=== PATIENT | female | born 1960 | race Caucasian/White ===

== ENCOUNTER → 2016-08-02 | Outpatient (CLI) | payer OTHER | LOC: RAD 15:54 | PROVIDERS: ATTEND Podiatrist Foot & Ankle Surgery | DX: Q72.819 Congenital shortening of unspecified lower limb (principal) | CPT/HCPCS: 77073 ==

== ENCOUNTER → 2016-10-19 | Outpatient (CLI) | payer OTHER ==
--- NOTE | 2016-10-19 13:39 | RADIOLOGY REPORT (SQ) ---
EXAM DESCRIPTION: MRI RT LOWER JOINT WITHOUT COMPLETED DATE/TIME: 10/19/2016 10:47 am REASON FOR STUDY: PAIN IN RIGHT KNEE M25.561 PAIN IN RIGHT KNEE COMPARISON: None. TECHNIQUE: Rightknee images acquired and stored on PACS. Multiplanar images include fat sensitive s equences as T1, water sensitive sequences as FST2 or STIR, cartilage sensitive sequences as FSPD, and gradient echo sequences. LIMITATIONS: None. FINDINGS: JOINT AND BURSAE: Large joint effusion. No discrete loose bodies are appreciated. BONE CORTEX AND MARROW: No alteration of signal to suggest marrow replacement. No worrisome bone lesi ons. No occult fracture. ACL: Intact. PCL: Intact. MCL: Intact. LCL: Intact. MEDIAL MENISCUS: Suspicious for subtle root tear, best demonstrated on coronal sequences. Slightly e xtruded appearance of the meniscus. Presumed degenerative signal otherwise. LATERAL MENISCUS: Heterogeneous. Irregular signal particularly in the body of the meniscus extending to the inferior articular surface and free margin, largely horizontal. MEDIAL COMPARTMENT: Suspicious for irregular chondral loss in the weight-bearing femoral condyle, bes t demonstrated on the coronal T2 fat saturated sequence. This may measure up to 6 mm transverse dime nsion. Minimal underlying subchondral edema close to this area. LATERAL COMPARTMENT: Cartilage preserved. No bone bruises or reactive marrow edema. No osteophytes. PATELLA: Normal location. Full-thickness to near full thickness chondral loss near the mid patellar apex. No underlying subchondral cysts or edema. EXTENSOR MECHANISM: Intact. Quadriceps and patella tendons normal. SOFT TISSUES: Large Cisneros's cyst which looks partially ruptured. Appropriate vascular flow voids. OTHER: No other significant finding. IMPRESSION: 1. Medial and lateral meniscus tears are suggested, as above. 2. Focal chondral lesion in the medial femoral condyle. 2. Chondromalacia patella. 3. Large joint effusion and partially ru ptured sizable popliteal cyst. TECHNICAL DOCUMENTATION: JOB ID: [id number] [employer]- All Rights Reserved
== END ==
LOC: RAD 09:38
PROVIDERS: ATTEND Physician Assistant
DX: M25.561 Pain in right knee (principal); M22.41 Chondromalacia patellae, right knee; M25.461 Effusion, right knee

== ENCOUNTER → 2016-11-30 | Outpatient (CLI) | payer OTHER ==
--- NOTE | 2016-12-01 10:53 | RADIOLOGY REPORT (SQ) ---
EXAM DESCRIPTION: MRI LT LOWER JOINT WITHOUT COMPLETED DATE/TIME: 11/30/2016 11:29 am REASON FOR STUDY: LEFT KNEE PAIN M25.562 PAIN IN LEFT KNEE COMPARISON: None. TECHNIQUE: Leftknee images acquired and stored on PACS. Multiplanar images include fat sensitive se quences as T1, water sensitive sequences as FST2 or STIR, cartilage sensitive sequences as FSPD, and gradient echo sequences. LIMITATIONS: None. FINDINGS: JOINT AND BURSAE: Sizable joint effusion. No discrete loose bodies. BONE CORTEX AND MARROW: Generally normal. Mild focal signal likely represents a 1 cm chondroid lesio n in the distal femur medially. ACL: Intact. PCL: Intact. MCL: Intact. LCL: Intact. MEDIAL MENISCUS: Slightly expanded appearance of the posterior horn with mildly diffuse non linear hy perintense T2 signal throughout. Degenerative appearance without discrete tear. LATERAL MENISCUS: No tears. No abnormal signal. MEDIAL COMPARTMENT: Thinning of hyaline cartilage in the weight-bearing surfaces but no suggestion of bulky osteophytes or subchondral cysts. LATERAL COMPARTMENT: Cartilage preserved. No bone bruises or reactive marrow edema. No osteophytes. PATELLA: Normal location. Irregular thinning of cartilage, fibrillation and near full thickness loss in the upper patella particularly near the apex. Minimal subchondral cysts with chondral thinning i n the central trochlea. EXTENSOR MECHANISM: Intact. Quadriceps and patella tendons normal. SOFT TISSUES: Adjacent muscles and subcutaneous tissues normal. Normal flow void in popliteal artery and vein. OTHER: No other significant finding. IMPRESSION: 1. Large joint effusion. 2. Chondral disease as described, medial compartment and pat ellofemoral. No discrete focal full-thickness areas of loss. 3. Allowing for degenerative signal i n the medial meniscus, no tear appreciated. 4. Probable enchondroma in the distal femur, no aggressi ve features. Radiographs may help to confirm this. TECHNICAL DOCUMENTATION: JOB ID: [id number] [employer] All Rights Reserved
== END ==
LOC: RAD 09:23
PROVIDERS: ATTEND Orthopaedic Surgery
DX: M25.562 Pain in left knee (principal)

== ENCOUNTER → 2016-12-11 | Outpatient (CLI) | payer OTHER ==
[2016-12-11 11:56] LABS: ABSOLUTE BASOPHILS # (AUTO) 0.1 10^3/uL (0.0-0.2); ABSOLUTE EOSINOPHILS # (AUTO) 0.2 10^3/uL (0.0-0.6); ABSOLUTE LYMPHOCYTES (AUTO) 2.3 10^3/uL (0.5-4.7); ABSOLUTE MONOCYTES (AUTO) 0.8 10^3/uL (0.1-1.4); ABSOLUTE NEUT (AUTO) 5.3 10^3/uL (1.7-8.2); BASOPHILS % (AUTO) 1.1 % (0-2); EOSINOPHILS % (AUTO) 2.9 % (0-6); HEMATOCRIT 35.4 % (36.0-47.0); HEMOGLOBIN 12.1 g/dL (12.0-15.5); HGB HCT DIFFERENCE 0.9; LYMPHOCYTES % (AUTO) 26.4 % (13-45); MEAN CORPUSCULAR HEMOGLOBIN 31.8 pg (27.0-33.4); MEAN CORPUSCULAR HGB CONC 34.3 g/dL (32.0-36.0); MEAN CORPUSCULAR VOLUME 93 fl (80-97); RED BLOOD COUNT 3.82 10^6/uL (3.72-5.28); RED CELL DISTRIBUTION WIDTH 14.9 % (11.5-14.0); SEGMENTED NEUTROPHILS % (AUTO) 60.6 % (42-78); WHITE BLOOD COUNT 8.8 10^3/uL (4.0-10.5)
[2016-12-11 12:24] LABS: ALANINE AMINOTRANSFERASE 45 U/L (9-52); ALBUMIN 4.5 g/dL (3.5-5.0); ALKALINE PHOSPHATASE 69 U/L (38-126); ANION GAP 11 (5-19); ASPARTATE AMINO TRANSFERASE 34 U/L (14-36); BILIRUBIN,DIRECT 0.3 mg/dL (0.0-0.4); BILIRUBIN,TOTAL 0.4 mg/dL (0.2-1.3); BLOOD UREA NITROGEN 14 mg/dL (7-20); CALCIUM 9.4 mg/dL (8.4-10.2); CARBON DIOXIDE 26 mmol/L (22-30); CHLORIDE 104 mmol/L (98-107); CREATININE RESULT 0.73 mg/dL (0.52-1.25); GLUCOSE 96 mg/dL (75-110); POTASSIUM 4.7 mmol/L (3.6-5.0); SODIUM 140.6 mmol/L (137-145); TOTAL PROTEIN 7.7 g/dL (6.3-8.2)
== END ==
LOC: OD 10:19
PROVIDERS: ATTEND Physician Assistant
DX: Z11.2 Encounter for screening for other bacterial diseases (principal); I10 Essential (primary) hypertension
CPT/HCPCS: 36415; 80053; 85025; 87070

== ENCOUNTER → 2017-02-10 | Outpatient (CLI) | payer OTHER ==
--- NOTE | 2017-02-10 17:11 | WOMENS IMAGING REPORT ---
EXAM DESCRIPTION: BILAT SCREENING MAMMO W/CAD COMPLETED DATE/TIME: 02/10/2017 3:43 pm REASON FOR STUDY: ROUTINE SCREENING; Z12.31 Z12.31 ENCNTR SCREEN MAMMOGRAM FOR MALIGNANT NEOPLASM O F DAVIN COMPARISON: 2011 to 2015 TECHNIQUE: Standard craniocaudal and mediolateral oblique views of each breast recorded using [employer] acquisition. LIMITATIONS: None. FINDINGS: No masses, calcifications or architectural distortion. No areas of suspicion. Read with the assistance of CAD. .[facility] - R2 Cenova Version 1.3 .[facility] - R2 Cenova Version 1.3 .[facility] - R2 Cenova Version 2.4 .[facility] [place] Cenova Version 2.4 .[facility] - R2 [employer] Version 9.2 IMPRESSION: NORMAL MAMMOGRAM. BIRADS 1. BREAST DENSITY: b. There are scattered areas of fibroglandular density. BIRAD: 1 NEGATIVE RECOMMENDATION: ROUTINE SCREENING COMMENT: The patient has been notified of the results by letter per SA requirements. Additional no tification policies are in place for contacting patient with suspicious or incomplete findings. Quality ID #225: The [employer] recommends an annual screening mammogram for women aged 40 years or over. This facility utilizes a reminder system to ensure that all patients receive reminder letters, and/or direct phone calls for appointments. This includes reminders for routine scr eening mammograms, diagnostic mammograms, or other Breast Imaging Interventions when appropriate. Th is patient will be placed in the appropriate reminder system. The [employer] (ACR) has developed recommendations for screening MRI of the breast s in certain patient populations, to be used in conjunction with mammography. Breast MRI surveillanc e may be appropriate for women with more than 20% lifetime risk of developing breast cancer as deter mined by genetic testing, significant family history of the disease, or history of mantle radiation f or Hodgkins Disease. ACR Practice Guidelines 2008. TECHNICAL DOCUMENTATION: FINDING NUMBER: (1) ASSESSMENT: (1) JOB ID: [id number] [employer]- All Rights Reserved
== END ==
LOC: WI 15:09
PROVIDERS: ATTEND Nurse Practitioner
DX: Z12.31 Encounter for screening mammogram for malignant neoplasm of breast (principal)
CPT/HCPCS: 77067; G0202

== ENCOUNTER → 2017-10-09 | Outpatient (CLI) | payer OTHER ==
--- NOTE | 2017-10-09 18:07 | RADIOLOGY REPORT (SQ) ---
EXAM DESCRIPTION: CERV SP 3 VIEW OR LESS COMPLETED DATE/TIME: 10/09/2017 5:51 pm REASON FOR STUDY: CERVICAL RADICULOPATHY (FLEX/EXT ONLY) COMPARISON: None. NUMBER OF VIEWS: Two view. TECHNIQUE: Lateral flexion-extension LIMITATIONS: None. FINDINGS: MINERALIZATION: Normal. ALIGNMENT: Anatomic. FLEXION/EXTENSION: No instability. VERTEBRAE: Vertebral bodies of normal height. DISCS: Mild degenerative disc disease at C4-5. LATERAL AND POSTERIOR ELEMENTS: Facets, lateral masses, and spinous processes without significant fin dings. HARDWARE: Anterior cervical fusion C5 through 7 with disc prostheses. SOFT TISSUES: No masses or calcifications. Lung apices clear. OTHER: No other significant finding. IMPRESSION: Surgical changes. Mild degenerative changes C4-5. NO INSTABILITY ON FLEXION/EXTENSION. TECHNICAL DOCUMENTATION: JOB ID: [id number] [employer]- All Rights Reserved Reading location - IP/workstation name: [email or web address]
== END ==
LOC: RAD 17:08
PROVIDERS: ATTEND Specialist
DX: M54.12 Radiculopathy, cervical region (principal)
CPT/HCPCS: 72040

== ENCOUNTER → 2018-01-08 | Outpatient (CLI) | payer OTHER ==
--- NOTE | 2018-01-08 17:45 | RADIOLOGY REPORT (SQ) ---
EXAM DESCRIPTION: CERV SP 3 VIEW OR LESS COMPLETED DATE/TIME: 01/08/2018 5:16 pm REASON FOR STUDY: M54.12 RADICULOPATHY, CERVICAL REGION M54.12 RADICULOPATHY, CERVICAL REGION COMPARISON: None. NUMBER OF VIEWS: Two views TECHNIQUE: Flexion and extension lateral radiographic images acquired of the cervical spine. LIMITATIONS: None. FINDINGS: Lateral views in flexion and extension show ACDF from C5-C7 with disc implants. There is no evidence of instability between flexion and extension. IMPRESSION: NO SIGNIFICANT RADIOGRAPHIC FINDING IN THE CERVICAL SPINE. TECHNICAL DOCUMENTATION: JOB ID: [id number] [employer]- All Rights Reserved Reading location - IP/workstation name: [email or web address]
== END ==
LOC: RAD 16:59
PROVIDERS: ATTEND Specialist
DX: M54.12 Radiculopathy, cervical region (principal)
CPT/HCPCS: 72040

== ENCOUNTER → 2018-02-11 | Outpatient (CLI) | payer OTHER ==
--- NOTE | 2018-02-11 16:41 | WOMENS IMAGING REPORT ---
EXAM DESCRIPTION: BILAT SCREENING MAMMO W/CAD COMPLETED DATE/TIME: 02/11/2018 3:53 pm REASON FOR STUDY: BLIATERAL SCREENING MAMMO /Z12.31 Z12.31 ENCNTR SCREEN MAMMOGRAM FOR MALIGNANT NE OPLASM OF DAVIN COMPARISON: 02/10/2017 and 02/06/2016 TECHNIQUE: Standard craniocaudal and mediolateral oblique views of each breast recorded using digita l acquisition. LIMITATIONS: None. FINDINGS: Findings present which are benign by mammographic criteria. No suspicious masses, calcifi cations or architectural distortion. Read with the assistance of CAD. .[facility] - R2 Cenova Version 1.3 .[facility] Imaging - R2 Cenova Version 1.3 .[facility] Imaging - R2 Cenova Version 2.[address] [place] - R2 Cenova Version 2.4 .[facility] - R2 [employer] Version 9.2 Benign mammographic findings may include one or more of the following: Smooth masses, popcorn/rim/co arse calcifications, asymmetries, post-procedure changes, and lesions with long-standing stability. IMPRESSION: BENIGN MAMMOGRAPHIC FINDINGS. BIRADS 2 BREAST DENSITY: b. There are scattered areas of fibroglandular density. BIRAD: 2 BENIGN FINDING(S) RECOMMENDATION: ROUTINE SCREENING COMMENT: The patient has been notified of the results by letter per SA requirements. Additional no tification policies are in place for contacting patient with suspicious or incomplete findings. Quality ID #225: The [employer] recommends an annual screening mammogram for women aged 40 years or over. This facility utilizes a reminder system to ensure that all patients receive reminder letters, and/or direct phone calls for appointments. This includes reminders for routine scr eening mammograms, diagnostic mammograms, or other Breast Imaging Interventions when appropriate. Th is patient will be placed in the appropriate reminder system. The [employer] (ACR) has developed recommendations for screening MRI of the breast s in certain patient populations, to be used in conjunction with mammography. Breast MRI surveillanc e may be appropriate for women with more than 20% lifetime risk of developing breast cancer as deter mined by genetic testing, significant family history of the disease, or history of mantle radiation f or Hodgkins Disease. ACR Practice Guidelines 2008. TECHNICAL DOCUMENTATION: FINDING NUMBER: (1) ASSESSMENT: (1) JOB ID: [id number] [employer]- All Rights Reserved Reading location - IP/workstation name: [email or web address]
== END ==
LOC: WI 15:28
PROVIDERS: ATTEND Nurse Practitioner
DX: Z12.31 Encounter for screening mammogram for malignant neoplasm of breast (principal)
CPT/HCPCS: 77067

== ENCOUNTER 2018-11-04 13:45 | Inpatient (IN) | payer OTHER ==
[2018-11-04] MEDS ORDERED: MORPHINE SULFATE 10 MG/ML INJ IV ONE ×2 (15:32→21:19)
[2018-11-04] MEDS ORDERED: ONDANSETRON HCL INJ/PF 4 MG/2 ML SDV IV ONE ×2 (15:32→21:19)
--- NOTE | 2018-11-04 15:34 | ER Document Report ---
ED Medical Screen (RME) - General Chief Complaint: Flank Pain Stated Complaint: ABDOMINAL PAIN,NAUSEA Time Seen by Provider: 11/04/18 15:26 Primary Care Provider: ALVARO LOWERY FNP [Primary Care Provider] - Follow up as needed Mode of Arrival: Ambulatory Information source: Patient Notes: 58-year-old female with past medical history of rheumatoid arthritis, hype rtension, fibromyalgia and connective tissue disorder presenting with chief complaint of right lower quadrant abdominal pain that radiates around to her right flank and into the right side of her back. Patient is unsure if this is from her overworking herself this past weekend or if it is some type of infection. Patient reports associated nausea but denies any vomiting. Patient has had a hiatal hernia repair so she states she is unable to vomit. Patient does also report chest pain whenever she takes a deep breath. She states she is not here for this however and she just wants her abdomen checked out. Exam: Tenderness to palpation of right lower quadrant. Lung sounds clear and equal bilaterally. Patient speaking in full complete sentences with no acute distress noted. I have greeted and performed a rapid initial assessment of this patient. A comprehensive ED assessment and evaluation of the patient, analysis of test results and completion of the medical decision making process will be conducted by additional ED providers. I have specifically instructed the patient or family members with the patient to immediately return to any nursing staff should anything change in the patient's condition or with their chief complaint. This medical record was dictated with voice recognizing software. There may be grammatical, syntax errors that are unintended. TRAVEL OUTSIDE OF THE [place] IN LAST 30 DAYS: No - Related Data Allergies/Adverse Reactions: hydroxychloroquine [From Plaquenil] Allergy (Verified 05/10/16 07:53) Past Medical History - Past Medical History Cardiac Medical History: Denies: Hx Coronary Artery Disease, Hx Heart Attack, Hx Hypertension Pulmonary Medical History: Denies: Hx Asthma, Hx Bronchitis, Hx COPD, Hx Pneumonia Neurological Medical History: Denies: Hx Cerebrovascular Accident, Hx Seizures GI Medical History: Reports: Hx Gastroesophageal Reflux Disease Musculoskeltal Medical History: Reports Hx Arthritis - osteo, Psychiatric Medical History: Reports: Hx Depression Past Surgical History: Reports: Hx Section. Denies: Hx Hysterectomy, Hx Pacemaker - Immunizations Hx Diphtheria, Pertussis, Tetanus Vaccination: Yes Physical Exam - Vital signs Vitals: Temp Pulse Resp BP Pulse Ox 98.7 F 104 H 18 107/60 100 11/04/18 13:58 11/04/18 13:58 11/04/18 13:58 11/04/18 13:58 11/04/18 13:58 Course - Vital Signs Vital signs: Temp Pulse Resp BP Pulse Ox 98.7 F 104 H 18 107/60 100 11/04/18 13:58 11/04/18 13:58 11/04/18 13:58 11/04/18 13:58 11/04/18 13:58 Doctor's Discharge - Discharge Referrals: ALVARO LOWERY FNP [Primary Care Provider] - Follow up as needed
[2018-11-04 16:52] LABS: HEMATOCRIT 28.8 % (36.0-47.0); HEMOGLOBIN 9.7 g/dL (12.0-15.5); MEAN CORPUSCULAR HEMOGLOBIN 30.7 pg (27.0-33.4); MEAN CORPUSCULAR HGB CONC 33.6 g/dL (32.0-36.0); MEAN CORPUSCULAR VOLUME 92 fl (80-97); PLATELET COUNT 206 10^3/uL (150-450); RED BLOOD COUNT 3.15 10^6/uL (3.72-5.28); RED CELL DISTRIBUTION WIDTH 15.4 % (11.5-14.0); WHITE BLOOD COUNT 22.4 10^3/uL (4.0-10.5)
[2018-11-04 16:56] LABS: APPEARANCE,URINE CLEAR; BILIRUBIN,URINE NEGATIVE (NEGATIVE); COLOR,URINE YELLOW; GLUCOSE, URINE NEGATIVE (NEGATIVE); KETONES,URINE NEGATIVE (NEGATIVE); LEUKOCYTE ESTERASE,URINE SMALL (NEGATIVE); NITRITE,URINE NEGATIVE (NEGATIVE); PROTEIN,URINE 100 mg/dL (NEGATIVE); URINE SPECIFIC GRAVITY 1.006; UROBILINOGEN,URINE NEGATIVE mg/dL (<2.0)
[2018-11-04 17:08] LABS: ABSOLUTE LYMPHOCYTES# (MANUAL) 1.6 10^3/uL (0.5-4.7); ABSOLUTE MONOCYTES # (MANUAL) 0.9 10^3/uL (0.1-1.4); BAND NEUTROPHILS % (MANUAL) 8 % (3-5); BASOPHILS % (MANUAL) 0 % (0-2); EOSINOPHILS % (MANUAL) 0 % (0-6); LYMPHOCYTES % (MANUAL) 7 % (13-45); METAMYELOCYTES % (MANUAL) 1 % (0); MONOCYTES % (MANUAL) 4 % (3-13); PLATELET COMMENT ADEQUATE; SEGMENTED NEUTROPHILS % (MAN) 80 % (42-78); TOTAL CELLS COUNTED 100
[2018-11-04 17:09] LABS: ALANINE AMINOTRANSFERASE 34 U/L (9-52); ALBUMIN 3.2 g/dL (3.5-5.0); ALKALINE PHOSPHATASE 117 U/L (38-126); ANION GAP 9 (5-19); ASPARTATE AMINO TRANSFERASE 25 U/L (14-36); BILIRUBIN,DIRECT 0.4 mg/dL (0.0-0.4); BILIRUBIN,TOTAL 0.6 mg/dL (0.2-1.3); BLOOD UREA NITROGEN 24 mg/dL (7-20); CALCIUM 9.1 mg/dL (8.4-10.2); CARBON DIOXIDE 25 mmol/L (22-30); CHLORIDE 100 mmol/L (98-107); GLUCOSE 74 mg/dL (75-110); POTASSIUM 4.9 mmol/L (3.6-5.0); SODIUM 134.1 mmol/L (137-145); TOTAL PROTEIN 5.9 g/dL (6.3-8.2)
[2018-11-04 17:10] LABS: ANISOCYTOSIS 1+; HYPOCHROMASIA SLIGHT; POLYCHROMASIA SLIGHT; TOXIC VACUOLATION PRESENT
[2018-11-04] MEDS ORDERED: NORMAL SALINE 1000 ML 1,000 ML IV ONE ×2 (21:04→22:34)
[2018-11-04] MEDS ORDERED: KETOROLAC TROMETHAMINE INJ/PF 30 MG/1 ML SDV IV ONE (21:04)
--- NOTE | 2018-11-04 21:20 | ER Document Report ---
ED GI/ - General Chief Complaint: Flank Pain Stated Complaint: ABDOMINAL PAIN,NAUSEA Time Seen by Provider: 11/04/18 15:26 Primary Care Provider: ALVARO LOWERY FNP [Primary Care Provider] - Follow up as needed Mode of Arrival: Ambulatory Notes: This is a pleasant 58-year-old female patient who is been waiting to be seen for approximately hours now with right lower quadrant pain, intermittent fevers and symptoms are getting worse. Large amount of nausea but cannot vomit because she has had a Edy fundoplication. Denies any diarrhea. Pain began count of in the right flank and now mostly located in the right lower quadrant. Denies any abnormal vaginal discharge. Cysts no other major symptoms at this time other than the fact that she has immunosuppressive therapy due to her inflammatory arthritis. TRAVEL OUTSIDE OF THE [place] IN LAST 30 DAYS: No - HPI Patient complains to provider of: Abdominal pain Timing/Duration: Gradual Quality of pain: Throbbing Severity at maximum: Moderate Severity in ED: Moderate Pain Level: 4 Location: RLQ, Right flank Vaginal bleeding (Compared to normal period): None - Related Data Allergies/Adverse Reactions: hydroxychloroquine [From Plaquenil] Allergy (Verified 05/10/16 07:53) Past Medical History - General Information source: Patient - Social History Smoking Status: Never Smoker Frequency of alcohol use: None Drug Abuse: None Lives with: Spouse/Significant other Family History: Reviewed & Not Pertinent Patient has suicidal ideation: No Patient has homicidal ideation: No - Past Medical History Cardiac Medical History: Denies: Hx Coronary Artery Disease, Hx Heart Attack, Hx Hypertension Pulmonary Medical History: Denies: Hx Asthma, Hx Bronchitis, Hx COPD, Hx Pneumonia Neurological Medical History: Denies: Hx Cerebrovascular Accident, Hx Seizures Renal/ Medical History: Denies: Hx Peritoneal Dialysis GI Medical History: Reports: Hx Gastroesophageal Reflux Disease Musculoskeletal Medical History: Reports Hx Arthritis - osteo, Psychiatric Medical History: Reports: Hx Depression Past Surgical History: Reports: Hx Abdominal Surgery, Hx Section, Hx Orthopedic Surgery - knee, neck. Denies: Hx Hysterectomy, Hx Pacemaker - Immunizations Hx Diphtheria, Pertussis, Tetanus Vaccination: Yes Review of Systems - Review of Systems Notes: Constitutional: denies: Chills, Diaphoresis, +Fever,- Malaise, -Weakness EENT: denies: Eye discharge, Blurred vision, Tearing, Double vision, Nose congestion, Nose discharge, Throat swelling, Mouth pain Cardiovascular: denies: Palpitations, Heart racing, Orthopnea, Dyspnea, Chest pain Respiratory: denies: Cough, Hurts to breathe, Wheezing, Shortness of breath Gastrointestinal: Complaining of right lower quadrant abdominal pain, nausea. No vomiting. No black tarry stools. No diarrhea. No bloody stools. Genitourinary: denies: Burning, Dysuria, Discharge, Frequency, + right sided flank pain,-Hematuria Musculoskeletal: denies: Joint pain, Joint swelling, Muscle pain, Muscle stiffness, back pain Hematologic/Lymphatic: denies: Anemia, Easy bleeding, Easy bruising, Blood clots Neurological/Psychological: denies: Confusion, Dementia, Depression, Loss of consciousness Skin: No lesions, no masses, no skin breakdown, no abscesses Physical Exam - Vital signs Vitals: Temp Pulse Resp BP Pulse Ox 98.7 F 104 H 18 107/60 100 11/04/18 13:58 11/04/18 13:58 11/04/18 13:58 11/04/18 13:58 11/04/18 13:58 Interpretation: Hypotensive, Tachycardic - General General appearance: Appears well, Alert - HEENT Head: Normocephalic, Atraumatic Eyes: Normal Pupils: PERRL - Respiratory Respiratory status: No respiratory distress Chest status: Nontender Breath sounds: Normal Chest palpation: Normal - Cardiovascular Rhythm: Tachycardia Heart sounds: Normal auscultation Murmur: No - Abdominal Inspection: Normal Distension: No distension Bowel sounds: Normal Tenderness: Tender, Guarding, Rebound Organomegaly: No organomegaly - Back Back: Normal, Nontender - Extremities General upper extremity: Normal inspection, Nontender, Normal color, Normal ROM, Normal temperature General lower extremity: Normal inspection, Nontender, Normal color, Normal ROM, Normal temperature, Normal weight bearing. No: Jagdish's sign - Neurological Neuro grossly intact: Yes Cognition: Normal Orientation: AAOx4 Shari Coma Scale Eye Opening: Spontaneous Shari Coma Scale Verbal: Oriented [place] Coma Scale Motor: Obeys Commands Shari Coma Scale Total: 15 Speech: Normal Motor strength normal: LUE, RUE, LLE, RLE Sensory: Normal - Psychological Associated symptoms: Normal affect, Normal mood - Skin Skin Temperature: Warm Skin Moisture: Dry Skin Color: Normal Course - Re-evaluation Re-evalutation: 11/04/18 22:03 Patient is very tender with guarding and rebound in the right lower quadrant with a WBC count of 22,000. She is hypotensive and tachycardic with a temperature of 95 recorded however currently at bedside her temperature orally is 99. By all criteria she is septic. I am starting on 2 L bolus of normal saline as well as Zosyn. Stat CT scan. Surgery called immediately due to my concern. We will proceed with immediate CT scan and reconsult with surgery 11/04/18 23:05 Laboratory 11/04/18 11/04/18 11/04/18 15:36 15:36 15:36 WBC 22.4 H RBC 3.15 L Hgb 9.7 L Hct 28.8 L MCV 92 MCH 30.7 MCHC 33.6 RDW 15.4 H Plt Count 206 Total Counted 100 Seg Neutrophils % Not Reportable Seg Neuts % (Manual) 80 H Band Neutrophils % 8 H Lymphocytes % Not Reportable Lymphocytes % (Manual) 7 L Monocytes % Not Reportable Monocytes % (Manual) 4 Eosinophils % Not Reportable Eosinophils % (Manual) 0 Basophils % Not Reportable Basophils % (Manual) 0 Metamyelocytes % 1 H Absolute Neutrophils Not Reportable Abs Neuts (Manual) 19.9 H Absolute Lymphocytes Not Reportable Abs Lymphs (Manual) 1.6 Absolute Monocytes Not Reportable Abs Monocytes (Manual) 0.9 Absolute Eosinophils Not Reportable Absolute Eos (Manual) 0.0 Absolute Basophils Not Reportable Abs Basophils (Manual) 0.0 Toxic Vacuolation PRESENT Dohle Bodies PRESENT Platelet Comment ADEQUATE Polychromasia SLIGHT Hypochromasia SLIGHT Anisocytosis 1+ Sodium 134.1 L Potassium 4.9 Chloride 100 Carbon Dioxide 25 Anion Gap 9 BUN 24 H Creatinine 1.53 H Est GFR ( Amer) 42 L Est GFR (Non-Af Amer) 35 L Glucose 74 L Lactic Acid Calcium 9.1 Total Bilirubin 0.6 Direct Bilirubin 0.4 Neonat Total Bilirubin Not Reportable Neonat Direct Bilirubin Not Reportable Neonat Indirect Bili Not Reportable AST 25 ALT 34 Alkaline Phosphatase 117 Total Protein 5.9 L Albumin 3.2 L Lipase Urine Color YELLOW Urine Appearance CLEAR Urine pH 7.0 Ur Specific [place] 1.006 Urine Protein 100 H Urine Glucose (UA) NEGATIVE Urine Ketones NEGATIVE Urine Blood SMALL H Urine Nitrite NEGATIVE Urine Bilirubin NEGATIVE Urine Urobilinogen NEGATIVE Ur Leukocyte Esterase SMALL H Urine WBC (Auto) 5 Urine RBC (Auto) 0 Urine Bacteria (Auto) 1+ Urine Mucus (Auto) RARE Urine Ascorbic Acid NEGATIVE 11/04/18 11/04/18 15:36 21:30 WBC RBC Hgb Hct MCV MCH MCHC RDW Plt Count Total Counted Seg Neutrophils % Seg Neuts % (Manual) Band Neutrophils % Lymphocytes % Lymphocytes % (Manual) Monocytes % Monocytes % (Manual) Eosinophils % Eosinophils % (Manual) Basophils % Basophils % (Manual) Metamyelocytes % Absolute Neutrophils Abs Neuts (Manual) Absolute Lymphocytes Abs Lymphs (Manual) Absolute Monocytes Abs Monocytes (Manual) Absolute Eosinophils Absolute Eos (Manual) Absolute Basophils Abs Basophils (Manual) Toxic Vacuolation Dohle Bodies Platelet Comment Polychromasia Hypochromasia Anisocytosis Sodium Potassium Chloride Carbon Dioxide Anion Gap BUN Creatinine Est GFR ( Amer) Est GFR (Non-Af Amer) Glucose Lactic Acid 1.0 Calcium Total Bilirubin Direct Bilirubin Neonat Total Bilirubin Neonat Direct Bilirubin Neonat Indirect Bili AST ALT Alkaline Phosphatase Total Protein Albumin Lipase 29.2 Urine Color Urine Appearance Urine pH Ur Specific [place] Urine Protein Urine Glucose (UA) Urine Ketones Urine Blood Urine Nitrite Urine Bilirubin Urine Urobilinogen Ur Leukocyte Esterase Urine WBC (Auto) Urine RBC (Auto) Urine Bacteria (Auto) Urine Mucus (Auto) Urine Ascorbic Acid Chest X-Ray 11/04/18 21:18 IMPRESSION: 1. Bilateral hilar fullness concerning for possible hilar and/or mediastinal lymphadenopathy. This appearance is new when compared to the prior study. This could be projectional in nature. Consider CT imaging of the chest as clinically indicated. 2. No evidence of acute intrathoracic disease. Abdomen/Pelvis CT 11/04/18 21:19 IMPRESSION: Edematous right kidney demonstrating perinephric inflammatory stranding as well as subtle areas of wedge-shaped hypoenhancement on coronal imaging, raising the possibility of pyelonephritis. Correlate. Suspect fibroid uterus. Indeterminate left adrenal nodule. Current recommendations suggest follow-up adrenal protocol CT at 12 months to document stability and confirm that this represents a benign adenoma. Fluid density lesion about the left adnexa measuring 2.5 x 1.7 cm in size, likely benign. View mildly enlarged michelle hepatic and retroperitoneal lymph nodes, nonspecific though potentially reactive. TECHNICAL DOCUMENTATION: Quality ID # 436: Final reports with documentation of one or more dose reduction techniques (e.g., Automated exposure control, adjustment of the mA and/or kV according to patient size, use of iterative reconstruction technique) copyright 2011 [employer]- All Rights Reserved By all accounts patient has fairly significant pyelonephritis with sepsis. Treating with broad-spectrum antibiotics, IV fluids. Her lactate is 1. Blood pressure is currently 95/65 with a heart rate of 96 oxygen saturations of 94%. I have consulted with the hospitalist. Will admit at this time. I did discuss case with a urologist [facility]. Patient does not have any significant demonstration of hydronephrosis so unlikely that a would not intervene as urology in any way at this time. She does recommend keeping the patient here and just treating her aggressively for sepsis and reassessing as things move forward. Will proceed with this plan at this time. Of note, patient recently was diagnosed with a MRSA lesion in her nose that would not heal. She is on methotrexate and immune modulators so I am going to also give her some vancomycin at this time and will notify the medicine team of this new i nformation as well. 11/04/18 23:15 11/04/18 23:17 - Vital Signs Vital signs: Temp Pulse Resp BP Pulse Ox 95.5 F L 97 24 H 107/65 97 11/04/18 21:40 11/04/18 20:37 11/04/18 21:40 11/04/18 21:39 11/04/18 21:40 - Laboratory Result Diagrams: 11/04/18 15:36 11/04/18 15:36 Laboratory results interpreted by me: 11/04/18 11/04/18 11/04/18 15:36 15:36 15:36 WBC 22.4 H RBC 3.15 L Hgb 9.7 L Hct 28.8 L RDW 15.4 H Seg Neuts % (Manual) 80 H Band Neutrophils % 8 H Lymphocytes % (Manual) 7 L Metamyelocytes % 1 H Abs Neuts (Manual) 19.9 H Sodium 134.1 L BUN 24 H Creatinine 1.53 H Est GFR ( Amer) 42 L Est GFR (Non-Af Amer) 35 L Glucose 74 L Total Protein 5.9 L Albumin 3.2 L Urine Protein 100 H Urine Blood SMALL H Ur Leukocyte Esterase SMALL H Critical Care Note - Critical Care Note Total time excluding time spent on procedures (mins): 45 Comments: Tachycardia, hypotension, sepsis, consultation with specialist Discharge - Discharge Clinical Impression: Pyelonephritis of right kidney Sepsis Qualifiers: Sepsis type: sepsis due to unspecified organism Qualified Code(s): A41.9 - Sepsis, unspecified organism Condition: Fair Disposition: ADMITTED INPATIENT Admitting Provider: James (Hospitalist) Unit Admitted: Telemetry Referrals: ALVARO LOWERY FNP [Primary Care Provider] - Follow up as needed
[2018-11-04] MEDS ORDERED: PIPERACILLIN/TAZOBACTAM 3.375 GM VIAL IV ONE (22:03)
--- NOTE | 2018-11-04 22:35 | RADIOLOGY REPORT (SQ) ---
EXAM DESCRIPTION: CT ABDOMEN PELVIS WITH IV CONTRAST COMPLETED DATE/TME: 11/04/2018 21:19 CLINICAL HISTORY: 58 years, Female, rlq pain. COMPARISON: None. TECHNIQUE: Contrast enhanced CT of the abdomen/pelvis was performed. Coronal and sagittal reformations were created. Images stored on PACS. All CT scanners at this facility use dose modulation, iterative reconstruction, and/or weight based dosing when appropriate to reduce radiation dose to as low as reasonably achievable (ALARA). [facility]: Dose Right [facility]: CareDose [facility]: Dose Right [facility]: Teradose 4D [facility]: [employer] LIMITATIONS: None. FINDINGS: Limited evaluation of the lower chest reveals mild bibasilar atelectasis. There is a small hiatal hernia. The liver, gallbladder, spleen, and pancreas appear normal. Right adrenal gland appears normal. A left adrenal nodule is noted measuring 1.8 x 1.6 cm in size, demonstrating 47 Hounsfield units internally on image 31 of series 3. Right kidney appears edematous, demonstrating mild perinephric inflammatory stranding. A few very subtle wedge-shaped areas of hypoenhancement are noted about the right kidney. This is especially evident on the coronal reformations. A subcentimeter low-density lesion is noted about the upper pole of the left kidney, too small to accurately characterize. The left kidney otherwise enhances normally. The urinary bladder is partially collapsed, thus its evaluation is limited. The uterus appears to contain a few enhancing circular lesions, likely indicating small fibroids. Bilateral tubal ligation clips are noted. A fluid density lesion is noted about the left adnexa measuring 2.5 x 1.7 cm in size on image 75 of series 3. The small and large bowel appear normal in caliber without areas of focal wall thickening. Evidence of bowel obstruction. The appendix is not visualized; however, no pericecal inflammatory changes are appreciated. A few mildly prominent michelle hepatic and retroperitoneal lymph nodes are noted, nonspecific. Vascular structures opacify with contrast normally. Bone windows show no destructive osseous lesions. IMPRESSION: Edematous right kidney demonstrating perinephric inflammatory stranding as well as subtle areas of wedge-shaped hypoenhancement on coronal imaging, raising the possibility of pyelonephritis. Correlate. Suspect fibroid uterus. Indeterminate left adrenal nodule. Current recommendations suggest follow-up adrenal protocol CT at 12 months to document stability and confirm that this represents a benign adenoma. Fluid density lesion about the left adnexa measuring 2.5 x 1.7 cm in size, likely benign. View mildly enlarged michelle hepatic and retroperitoneal lymph nodes, nonspecific though potentially reactive. TECHNICAL DOCUMENTATION: Quality ID # 436: Final reports with documentation of one or more dose reduction techniques (e.g., Automated exposure control, adjustment of the mA and/or kV according to patient size, use of iterative reconstruction technique) copyright 2011 [employer]- All Rights Reserved
--- NOTE | 2018-11-04 22:48 | RADIOLOGY REPORT (SQ) ---
EXAM DESCRIPTION: X-ray two view chest. CLINICAL HISTORY: 58 years Female, sob COMPARISON: 05/10/2016 TECHNIQUE: PA and Lateral views of the chest performed on 11/04/2018 at 10:14 PM FINDINGS: The lungs are well-expanded and are clear. The costophrenic sulci are clear. There is no evidence of a pneumothorax. The cardiac silhouette is normal in size. There is mild bilateral hilar fullness concerning for possible hilar and/or mediastinal lymphadenopathy. No acute osseous abnormalities are identified. There are remote postsurgical changes of the lower cervical spine. These findings are new when compared to the prior chest x-ray. No focal soft tissue abnormalities are identified. IMPRESSION: 1. Bilateral hilar fullness concerning for possible hilar and/or mediastinal lymphadenopathy. This appearance is new when compared to the prior study. This could be projectional in nature. Consider CT imaging of the chest as clinically indicated. 2. No evidence of acute intrathoracic disease.
[2018-11-04] MEDS ORDERED: ACETAMINOPHEN 325 MG TABLET PO PRN (22:57)
[2018-11-04] MEDS ORDERED: MAG HYDROX/AL HYDROX/SIMETH SUSP 30 ML UDCUP PO PRN (22:57)
[2018-11-04] MEDS ORDERED: PIPERACILLIN/TAZOBACTAM 4.5 GM VIAL IV PRN (23:03)
[2018-11-04] MEDS ORDERED: VANCOMYCIN HCL INJ 1000 MG VIAL IV ONE (23:16)
[2018-11-04] MEDS ORDERED: VANCOMYCIN HCL 0 MG in DEXTROSE 5%-WATER 250 ML IV NR (23:30)
[2018-11-04] MEDS ORDERED: VANCOMYCIN HCL INJ 1000 MG VIAL IV PRN (23:35)
[2018-11-05] MEDS ORDERED: PIPERACILLIN SODIUM/TAZOBACTAM 4.5 GM in NORMAL SALINE 100 ML IV SCH ×2
[2018-11-05] MEDS ORDERED: VANCOMYCIN HCL 1,500 MG in DEXTROSE 5%-WATER 250 ML IV ONE (00:30)
[2018-11-05] MEDS: NORMAL SALINE 1000 ML 1,000 ML IV PRN ×3 (01:55→06:45)
[2018-11-05] MEDS ORDERED: PIPERACILLIN/TAZOBACTAM 4.5 GM VIAL IV ONE (01:59)
[2018-11-05] MEDS: PIPERACILLIN SODIUM/TAZOBACTAM 4.5 GM in NORMAL SALINE 100 ML IV SCH ×4 (02:31→20:02)
[2018-11-05] MEDS: MORPHINE SULFATE 10 MG/ML INJ IV PRN (04:45)
--- NOTE | 2018-11-05 04:58 | PDOC H&P ---
History of Present Illness Admission Date/PCP: 11/04/18 23:36 ANA POE Patient complains of: Right-sided flank pain History of Present Illness: TAHIR PITTMAN is a 58 year old female with a past medical history of MRSA colonization, hypertension, constipation predominant IBS, seronegative rheumatoid arthritis, mixed connective tissue disease and fibromyalgia on Humira. She presents with 6 hours of fever abdominal pain nausea without vomiting status post Edy fundoplication. She admits to small volume polyuria denies dysuria in the emergency room she is found to have severe sepsis with hypotension, tachycardia and fever, CT reveals right-sided pyelonephritis without abscess or hydronephrosis. She started on empiric antibiotics, and IV fluid challenge and referred to the hospitalist for admission. Past Medical History Cardiac Medical History: Denies: Coronary Artery Disease, Myocardial Infarction, Hypertension Pulmonary Medical History: Denies: Asthma, Bronchitis, Chronic Obstructive Pulmonary Disease (COPD), Pneumonia Neurological Medical History: Denies: Seizures GI Medical History: Reports: Gastroesophageal Reflux Disease Musculoskeltal Medical History: Reports: Arthritis - osteo, Psychiatric Medical History: Reports: Depression Hematology: Denies: Anemia Past Surgical History Past Surgical History: Reports: Section, Orthopedic Surgery - knee, neck Denies: Hysterectomy, Pacemaker Social History Information Source: Patient Lives with: Spouse/Significant other Smoking Status: Never Smoker Frequency of Alcohol Use: None Hx Recreational Drug Use: No Drugs: None - Advance Directive Resuscitation Status: Full Code Family History Family History: Hypertension Parental Family History Reviewed: Yes Children Family History Reviewed: Yes Sibling(s) Family History Reviewed.: Yes - Dr. Ramirez Medication/Allergy Home Medications: Duloxetine HCl [Brucealta 20 Mg Capsule.] 60 mg PO DAILY 05/31/12 Metoprolol Succinate [Toprol XL 25 mg Tablet] 25 mg PO DAILY 09/03/12 Esomeprazole Mag Trihydrate [Nexium] 40 mg PO DAILY 09/04/12 Diazepam [Valium 5 mg Tablet] 5 mg PO ASDIR PRN 07/29/13 Diclofenac Sodium [Voltaren] 75 mg PO BID 07/29/13 Estrogen,Con/M-Progest Acet [Prempro 0.625-2.5 mg Tablet] 1 each PO DAILY 07/29/13 Dicyclomine HCl [Bentyl 10 mg Capsule] 1 cap PO DAILY 07/30/13 Allergies/Adverse Reactions: hydroxychloroquine [From Plaquenil] Allergy (Verified 05/10/16 07:53) Review of Systems Constitutional: ABSENT: chills, fever(s), headache(s), weight gain, weight loss Eyes: ABSENT: visual disturbances Ears: ABSENT: hearing changes Cardiovascular: ABSENT: chest pain, dyspnea on exertion, edema, orthropnea, palpitations Respiratory: ABSENT: cough, hemoptysis Gastrointestinal: ABSENT: abdominal pain, constipation, diarrhea, hematemesis, hematochezia, nausea, vomiting Genitourinary: ABSENT: dysuria, hematuria Musculoskeletal: ABSENT: joint swelling Integumentary: ABSENT: rash, wounds Neurological: ABSENT: abnormal gait, abnormal speech, confusion, dizziness, focal weakness, syncope Psychiatric: ABSENT: anxiety, depression, homidical ideation, suicidal ideation Endocrine: ABSENT: cold intolerance, heat intolerance, polydipsia, polyuria Hematologic/Lymphatic: ABSENT: easy bleeding, easy bruising Physical Exam Vital Signs: Temp Pulse Resp BP Pulse Ox 98.2 F 105 H 18 101/58 L 94 11/05/18 01:14 11/05/18 02:00 11/05/18 01:14 11/05/18 01:14 11/05/18 01:14 Intake & Output 11/03/18 11/04/18 11/05/18 11:59 11:59 11:59 Intake Total 3350 Balance 3350 Weight 84.5 kg General appearance: PRESENT: cooperative, mild distress, well-developed, well- nourished Head exam: PRESENT: atraumatic, normocephalic Eye exam: PRESENT: conjunctiva pink, EOMI, PERRLA. ABSENT: scleral icterus Ear exam: PRESENT: normal external ear exam Mouth exam: PRESENT: moist, tongue midline Neck exam: ABSENT: carotid bruit, JVD, lymphadenopathy, thyromegaly Respiratory exam: PRESENT: clear to auscultation dangelo. ABSENT: rales, rhonchi, wheezes Cardiovascular exam: PRESENT: RRR, tachycardia. ABSENT: diastolic murmur, rubs, systolic murmur Pulses: PRESENT: normal dorsalis pedis pul Vascular exam: PRESENT: normal capillary refill GI/Abdominal exam: PRESENT: diminished bowel sounds, hypoactive bowel sounds, soft, tenderness. ABSENT: ascites, distended, guarding Rectal exam: PRESENT: deferred Extremities exam: PRESENT: full ROM. ABSENT: calf tenderness, clubbing, pedal edema Neurological exam: PRESENT: alert, awake, oriented to person, oriented to place, oriented to time, oriented to situation, CN II-XII grossly intact. ABSENT: motor sensory deficit Psychiatric exam: PRESENT: appropriate affect, normal mood. ABSENT: homicidal ideation, suicidal ideation Skin exam: PRESENT: dry, intact, warm. ABSENT: cyanosis, rash Results Laboratory Results: 11/04/18 15:36 11/04/18 15:36 11/04/18 11/04/18 11/04/18 15:36 15:36 15:36 WBC 22.4 H RBC 3.15 L Hgb 9.7 L Hct 28.8 L MCV 92 MCH 30.7 MCHC 33.6 RDW 15.4 H Plt Count 206 Seg Neutrophils % Not Reportable Lymphocytes % Not Reportable Monocytes % Not Reportable Eosinophils % Not Reportable Basophils % Not Reportable Absolute Neutrophils Not Reportable Absolute Lymphocytes Not Reportable Absolute Monocytes Not Reportable Absolute Eosinophils Not Reportable Absolute Basophils Not Reportable Sodium 134.1 L Potassium 4.9 Chloride 100 Carbon Dioxide 25 Anion Gap 9 BUN 24 H Creatinine 1.53 H Est GFR ( Amer) 42 L Est GFR (Non-Af Amer) 35 L Glucose 74 L Lactic Acid Calcium 9.1 Magnesium Total Bilirubin 0.6 AST 25 ALT 34 Alkaline Phosphatase 117 Total Protein 5.9 L Albumin 3.2 L Lipase Urine Color YELLOW Urine Appearance CLEAR Urine pH 7.0 Ur Specific [place] 1.006 Urine Protein 100 H Urine Glucose (UA) NEGATIVE Urine Ketones NEGATIVE Urine Blood SMALL H Urine Nitrite NEGATIVE Ur Leukocyte Esterase SMALL H Urine WBC (Auto) 5 Urine RBC (Auto) 0 11/04/18 11/04/18 11/04/18 15:36 15:36 21:30 WBC RBC Hgb Hct MCV MCH MCHC RDW Plt Count Seg Neutrophils % Lymphocytes % Monocytes % Eosinophils % Basophils % Absolute Neutrophils Absolute Lymphocytes Absolute Monocytes Absolute Eosinophils Absolute Basophils Sodium Potassium Chloride Carbon Dioxide Anion Gap BUN Creatinine Est GFR ( Amer) Est GFR (Non-Af Amer) Glucose Lactic Acid 1.0 Calcium Magnesium 2.0 Total Bilirubin AST ALT Alkaline Phosphatase Total Protein Albumin Lipase 29.2 Urine Color Urine Appearance Urine pH Ur Specific [place] Urine Protein Urine Glucose (UA) Urine Ketones Urine Blood Urine Nitrite Ur Leukocyte Esterase Urine WBC (Auto) Urine RBC (Auto) Impressions: Chest X-Ray 11/04/18 21:18 IMPRESSION: 1. Bilateral hilar fullness concerning for possible hilar and/or mediastinal lymphadenopathy. This appearance is new when compared to the prior study. This could be projectional in nature. Consider CT imaging of the chest as clinically indicated. 2. No evidence of acute intrathoracic disease. Abdomen/Pelvis CT 11/04/18 21:19 IMPRESSION: Edematous right kidney demonstrating perinephric inflammatory stranding as well as subtle areas of wedge-shaped hypoenhancement on coronal imaging, raising the possibility of pyelonephritis. Correlate. Suspect fibroid uterus. Indeterminate left adrenal nodule. Current recommendations suggest follow-up adrenal protocol CT at 12 months to document stability and confirm that this represents a benign adenoma. Fluid density lesion about the left adnexa measuring 2.5 x 1.7 cm in size, likely benign. View mildly enlarged michelle hepatic and retroperitoneal lymph nodes, nonspecific though potentially reactive. TECHNICAL DOCUMENTATION: Quality ID # [id number]: Final reports with documentation of one or more dose reduction techniques (e.g., Automated exposure control, adjustment of the mA and/or kV according to patient size, use of iterative reconstruction technique) copyright 2011 [employer]- All Rights Reserved Assessment and Plan - Diagnosis (1) Pyelonephritis of right kidney Is this a current diagnosis for this admission?: Yes Plan: Complicated by immunocompromise by Humira and MRSA colonization. No hydronephrosis no abscess, continue vancomycin, Zosyn, follow-up CBC, blood and urine culture. (2) Sepsis Qualifiers: Sepsis type: sepsis due to unspecified organism Qualified Code(s): A41.9 - Sepsis, unspecified organism Is this a current diagnosis for this admission?: Yes Plan: Secondary to #1, IV fluid challenge, pressors PRN follow-up chemistry and lactic acid (3) Acute renal failure Is this a current diagnosis for this admission?: Yes Plan: Secondary to #1, avoid nephrotoxic meds and doses, follow-up chemistry (4) Immunocompromised state due to drug therapy Is this a current diagnosis for this admission?: Yes Plan: Hold Humira bimonthly dose due 11/05. Consider adrenal deficiency work-up - Time Time Spent with patient: 25-34 minutes - Inpatient Certification Medical Necessity: Need Close Monitoring Due to Risk of Patient Decompensation
[2018-11-05] MEDS: HEPARIN SOD (PORCINE) 5,000 UNIT/ML 1 ML SYRINGE SUBCUT SCH ×3 (05:00→21:00)
[2018-11-05 06:24] LABS: HEMOGLOBIN 8.6 g/dL (12.0-15.5); MEAN CORPUSCULAR HEMOGLOBIN 30.7 pg (27.0-33.4); MEAN CORPUSCULAR VOLUME 93 fl (80-97); PLATELET COUNT 153 10^3/uL (150-450); RED BLOOD COUNT 2.79 10^6/uL (3.72-5.28); RED CELL DISTRIBUTION WIDTH 15.3 % (11.5-14.0)
[2018-11-05 06:33] LABS: ALANINE AMINOTRANSFERASE 27 U/L (9-52); ALBUMIN 2.5 g/dL (3.5-5.0); ALKALINE PHOSPHATASE 93 U/L (38-126); ANION GAP 11 (5-19); ASPARTATE AMINO TRANSFERASE 21 U/L (14-36); BILIRUBIN,DIRECT 0.7 mg/dL (0.0-0.4); BILIRUBIN,TOTAL 0.8 mg/dL (0.2-1.3); BLOOD UREA NITROGEN 25 mg/dL (7-20); CALCIUM 8.1 mg/dL (8.4-10.2); CARBON DIOXIDE 19 mmol/L (22-30); CHLORIDE 106 mmol/L (98-107); GLUCOSE 79 mg/dL (75-110); POTASSIUM 4.6 mmol/L (3.6-5.0); TOTAL PROTEIN 4.7 g/dL (6.3-8.2)
[2018-11-05] MEDS: IPRATROPIUM/ALBUTEROL 0.5-2.5 MG/3 ML AMPUL NEB PRN (06:53)
[2018-11-05 07:37] LABS: ABSOLUTE LYMPHOCYTES# (MANUAL) 0.6 10^3/uL (0.5-4.7); ABSOLUTE MONOCYTES # (MANUAL) 0.6 10^3/uL (0.1-1.4); BAND NEUTROPHILS % (MANUAL) 1 % (3-5); BASOPHILS % (MANUAL) 1 % (0-2); EOSINOPHILS % (MANUAL) 1 % (0-6); LYMPHOCYTES % (MANUAL) 4 % (13-45); MONOCYTES % (MANUAL) 4 % (3-13); SEGMENTED NEUTROPHILS % (MAN) 89 % (42-78); TOTAL CELLS COUNTED 100
[2018-11-05 07:39] LABS: ANISOCYTOSIS SLIGHT; BURR CELLS SLIGHT; OVALOCYTES SLIGHT; PLATELET COMMENT ADEQUATE; POIKILOCYTOSIS SLIGHT; TOXIC GRANULATION 1+; TOXIC VACUOLATION PRESENT
[2018-11-05] MEDS: DULOXETINE HCL 30 MG CAPSULE.DR PO SCH (09:15)
[2018-11-05] MEDS: ACETAMINOPHEN 325 MG TABLET PO PRN ×2 (09:21→20:02)
[2018-11-05] MEDS: METOPROLOL SUCCINATE 25 MG TAB.SR.24H PO SCH (09:47)
[2018-11-05] MEDS ORDERED: DULOXETINE HCL 20 MG CAPSULE.DR PO SCH (10:00)
--- NOTE | 2018-11-05 16:14 | PDOC PROGRESS REPORT ---
Subjective Progress Note for:: 11/05/18 Subjective:: This is 58 years old female patient with past medical history of depression rheumatoid arthritis, obesity, mixed connective tissue disease, constipation predominant IBS, fibromyalgia on Humira, hypertension presented with chief complaints of 6 hours duration of right flank pain. Urinalysis positive for urinary tract infection. And her blood work shows market leukocytosis of 22,000 and her creatinine was 1.53. Her CT scan reveals right- sided pyelonephritis without abscess or hydronephrosis. Her her blood culture grew gram-negative rods. Patient has been started on Zosyn. And this morning when I see her she reported that the flank pain is relatively better. Her white cell counts trended down to 16 and her creatinine is trending down from 1.53- 1.43. Reason For Visit: ACUTE PYELONEPHRITIS,ARF,RA ON [place] Physical Exam Vital Signs: Temp Pulse Resp BP Pulse Ox 97.8 F 89 19 118/77 91 L 11/05/18 12:00 11/05/18 14:00 11/05/18 12:00 11/05/18 12:00 11/05/18 12:00 Intake & Output 11/04/18 11/05/18 11/06/18 06:59 06:59 06:59 Intake Total 4750 1100 Output Total 1100 Balance 3650 1100 Weight 84.5 kg General appearance: PRESENT: no acute distress, obese Head exam: PRESENT: atraumatic Eye exam: PRESENT: conjunctiva pink Mouth exam: PRESENT: moist Neck exam: ABSENT: carotid bruit, JVD, lymphadenopathy, thyromegaly Respiratory exam: PRESENT: clear to auscultation dangelo. ABSENT: rales, rhonchi, wheezes Cardiovascular exam: PRESENT: RRR. ABSENT: diastolic murmur, rubs, systolic murmur GI/Abdominal exam: PRESENT: normal bowel sounds, soft. ABSENT: distended, guarding, mass, organolmegaly, rebound, tenderness Gentrourinary exam: PRESENT: other - Right flank tenderness Neurological exam: PRESENT: alert, awake, oriented to person, oriented to place, oriented to time, oriented to situation Results Laboratory Results: 11/05/18 05:34 11/05/18 05:34 11/04/18 11/04/18 11/04/18 15:36 15:36 15:36 WBC 22.4 H RBC 3.15 L Hgb 9.7 L Hct 28.8 L MCV 92 MCH 30.7 MCHC 33.6 RDW 15.4 H Plt Count 206 Seg Neutrophils % Not Reportable Lymphocytes % Not Reportable Monocytes % Not Reportable Eosinophils % Not Reportable Basophils % Not Reportable Absolute Neutrophils Not Reportable Absolute Lymphocytes Not Reportable Absolute Monocytes Not Reportable Absolute Eosinophils Not Reportable Absolute Basophils Not Reportable Sodium 134.1 L Potassium 4.9 Chloride 100 Carbon Dioxide 25 Anion Gap 9 BUN 24 H Creatinine 1.53 H Est GFR ( Amer) 42 L Est GFR (Non-Af Amer) 35 L Glucose 74 L Lactic Acid Calcium 9.1 Magnesium Total Bilirubin 0.6 AST 25 ALT 34 Alkaline Phosphatase 117 Total Protein 5.9 L Albumin 3.2 L Lipase Urine Color YELLOW Urine Appearance CLEAR Urine pH 7.0 Ur Specific [place] 1.006 Urine Protein 100 H Urine Glucose (UA) NEGATIVE Urine Ketones NEGATIVE Urine Blood SMALL H Urine Nitrite NEGATIVE Ur Leukocyte Esterase SMALL H Urine WBC (Auto) 5 Urine RBC (Auto) 0 11/04/18 11/04/18 11/04/18 15:36 15:36 21:30 WBC RBC Hgb Hct MCV MCH MCHC RDW Plt Count Seg Neutrophils % Lymphocytes % Monocytes % Eosinophils % Basophils % Absolute Neutrophils Absolute Lymphocytes Absolute Monocytes Absolute Eosinophils Absolute Basophils Sodium Potassium Chloride Carbon Dioxide Anion Gap BUN Creatinine Est GFR ( Amer) Est GFR (Non-Af Amer) Glucose Lactic Acid 1.0 Calcium Magnesium 2.0 Total Bilirubin AST ALT Alkaline Phosphatase Total Protein Albumin Lipase 29.2 Urine Color Urine Appearance Urine pH Ur Specific [place] Urine Protein Urine Glucose (UA) Urine Ketones Urine Blood Urine Nitrite Ur Leukocyte Esterase Urine WBC (Auto) Urine RBC (Auto) 11/05/18 11/05/18 11/05/18 05:34 05:34 05:34 WBC 16.0 H RBC 2.79 L Hgb 8.6 L Hct 26.0 L MCV 93 MCH 30.7 MCHC 33.0 RDW 15.3 H Plt Count 153 Seg Neutrophils % Not Reportable Lymphocytes % Not Reportable Monocytes % Not Reportable Eosinophils % Not Reportable Basophils % Not Reportable Absolute Neutrophils Not Reportable Absolute Lymphocytes Not Reportable Absolute Monocytes Not Reportable Absolute Eosinophils Not Reportable Absolute Basophils Not Reportable Sodium 136.0 L Potassium 4.6 Chloride 106 Carbon Dioxide 19 L Anion Gap 11 BUN 25 H Creatinine 1.43 H Est GFR ( Amer) 46 L Est GFR (Non-Af Amer) 38 L Glucose 79 Lactic Acid 0.9 Calcium 8.1 L Magnesium Total Bilirubin 0.8 AST 21 ALT 27 Alkaline Phosphatase 93 Total Protein 4.7 L Albumin 2.5 L Lipase Urine Color Urine Appearance Urine pH Ur Specific [place] Urine Protein Urine Glucose (UA) Urine Ketones Urine Blood Urine Nitrite Ur Leukocyte Esterase Urine WBC (Auto) Urine RBC (Auto) Impressions: Chest X-Ray 11/04/18 21:18 IMPRESSION: 1. Bilateral hilar fullness concerning for possible hilar and/or mediastinal lymphadenopathy. This appearance is new when compared to the prior study. This could be projectional in nature. Consider CT imaging of the chest as clinically indicated. 2. No evidence of acute intrathoracic disease. Abdomen/Pelvis CT 11/04/18 21:19 IMPRESSION: Edematous right kidney demonstrating perinephric inflammatory stranding as well as subtle areas of wedge-shaped hypoenhancement on coronal imaging, raising the possibility of pyelonephritis. Correlate. Suspect fibroid uterus. Indeterminate left adrenal nodule. Current recommendations suggest follow-up adrenal protocol CT at 12 months to document stability and confirm that this represents a benign adenoma. Fluid density lesion about the left adnexa measuring 2.5 x 1.7 cm in size, likely benign. View mildly enlarged michelle hepatic and retroperitoneal lymph nodes, nonspecific though potentially reactive. TECHNICAL DOCUMENTATION: Quality ID # [id number]: Final reports with documentation of one or more dose reduction techniques (e.g., Automated exposure control, adjustment of the mA and/or kV according to patient size, use of iterative reconstruction technique) copyright 2011 [employer]- All Rights Reserved Assessment and Plan - Diagnosis (1) Sepsis Is this a current diagnosis for this admission?: Yes Plan: Evidence it by leukocytosis, acute kidney injury fever source of infection which is the urinary tract. Continue current antibiotics. (2) Gram-negative bacteremia Is this a current diagnosis for this admission?: Yes Plan: Most probably urinary tract origin. We will repeat her blood culture. We will continue current antibiotics. E. coli might be the culprit. (3) Pyelonephritis of right kidney Is this a current diagnosis for this admission?: Yes Plan: Continue current antibiotics. (4) Acute kidney injury Is this a current diagnosis for this admission?: Yes Plan: Her kidney function is improving with hydration. (5) Leukocytosis Is this a current diagnosis for this admission?: Yes Plan: White cell count is trending down. (6) Type 2 diabetes mellitus Is this a current diagnosis for this admission?: Yes Plan: Continue current regimen (7) Hypertension Qualifiers: Hypertension type: essential hypertension Qualified Code(s): I10 - Essential (primary) hypertension Is this a current diagnosis for this admission?: Yes Plan: Resume home medication (8) Hyperlipidemia Qualifiers: Hyperlipidemia type: unspecified Qualified Code(s): E78.5 - Hyperlipidemia, unspecified Is this a current diagnosis for this admission?: Yes Plan: Resume home medication (9) Obesity (BMI 30.0-34.9) Is this a current diagnosis for this admission?: Yes Plan: Patient encouraged to do lifestyle modification.
[2018-11-05] MEDS: MAGNESIUM HYDROXIDE SUSP 30 ML UDCUP PO PRN (21:00)
[2018-11-05] MEDS ORDERED: VANCOMYCIN HCL 1,250 MG in DEXTROSE 5%-WATER 250 ML IV SCH (22:00)
[2018-11-06] MEDS: PIPERACILLIN SODIUM/TAZOBACTAM 4.5 GM in NORMAL SALINE 100 ML IV SCH ×2 (02:45→12:58)
[2018-11-06] MEDS: HEPARIN SOD (PORCINE) 5,000 UNIT/ML 1 ML SYRINGE SUBCUT SCH ×3 (05:05→21:09)
[2018-11-06] MEDS: IPRATROPIUM/ALBUTEROL 0.5-2.5 MG/3 ML AMPUL NEB PRN ×2 (07:05→19:53)
[2018-11-06] MEDS: ACETAMINOPHEN 325 MG TABLET PO PRN ×2 (07:45→20:22)
[2018-11-06] MEDS: METOPROLOL SUCCINATE 25 MG TAB.SR.24H PO SCH (10:08)
[2018-11-06] MEDS: DULOXETINE HCL 30 MG CAPSULE.DR PO SCH (10:11)
[2018-11-06] MEDS: CEFTRIAXONE 2 GM/D5W RTU 2 GM/50 ML RTUPB IV SCH (10:11)
[2018-11-06] MEDS: MORPHINE SULFATE 10 MG/ML INJ IV PRN (12:45)
--- NOTE | 2018-11-06 13:22 | PDOC PROGRESS REPORT ---
Subjective Progress Note for:: 11/06/18 Subjective:: This is 58 years old female patient with past medical history of depression rheumatoid arthritis, obesity, mixed connective tissue disease, constipation predominant IBS, fibromyalgia on Humira, hypertension presented with chief complaints of 6 hours duration of right flank pain. Urinalysis positive for urinary tract infection. And her blood work shows market leukocytosis of 22,000 and her creatinine was 1.53. Her CT scan reveals right- sided pyelonephritis without abscess or hydronephrosis. Her her blood culture grew gram-negative rods. Patient has been started on Zosyn. And this morning when I see her she reported that the flank pain is relatively better. Her white cell counts trended down to 16 and her creatinine is trending down from 1.53- 1.43. 11/06/2018: Patient seen and examined while she is resting in bed. She reports this her right flank pain is improving. Her vital signs are stable. She complains of shortness of breath. I listen to her chest no wheezing or crackles. Patient is non-smoker and no history of secondhand smoking. Patient has been on Humira and methotrexate for her seronegative rheumatoid arthritis and mixed connective tissue disease. Since methotrexate is hepatotoxic as well as pulmonary toxic the possibility of pulmonary fibrosis should be considered. 2 bottles of her blood culture are positive for E. coli which is pansensitive so her Zosyn is switched to ceftriaxone. Reason For Visit: ACUTE PYELONEPHRITIS,ARF,RA ON [place] Physical Exam Vital Signs: Temp Pulse Resp BP Pulse Ox 98.2 F 91 16 129/79 H 97 11/06/18 08:00 11/06/18 12:49 11/06/18 12:49 11/06/18 08:00 11/06/18 12:49 Intake & Output 11/05/18 11/06/18 11/07/18 06:59 06:59 06:59 Intake Total 4750 3703 50 Output Total 1100 3550 Balance 3650 153 50 Weight 84.5 kg 87.2 kg General appearance: PRESENT: mild distress Head exam: PRESENT: atraumatic Eye exam: PRESENT: conjunctiva pink Mouth exam: PRESENT: moist Neck exam: ABSENT: carotid bruit, JVD, lymphadenopathy, thyromegaly Respiratory exam: PRESENT: clear to auscultation dangelo. ABSENT: rales, rhonchi, wheezes Cardiovascular exam: PRESENT: RRR. ABSENT: diastolic murmur, rubs, systolic murmur GI/Abdominal exam: PRESENT: normal bowel sounds, soft. ABSENT: distended, guarding, mass, organolmegaly, rebound, tenderness Neurological exam: PRESENT: alert, awake, oriented to person, oriented to place, oriented to time, oriented to situation Results Laboratory Results: 11/05/18 05:34 11/05/18 05:34 11/04/18 21:30 Blood Blood Culture - Final Escherichia Coli Impressions: Chest X-Ray 11/04/18 21:18 IMPRESSION: 1. Bilateral hilar fullness concerning for possible hilar and/or mediastinal lymphadenopathy. This appearance is new when compared to the prior study. This could be projectional in nature. Consider CT imaging of the chest as clinically indicated. 2. No evidence of acute intrathoracic disease. Abdomen/Pelvis CT 11/04/18 21:19 IMPRESSION: Edematous right kidney demonstrating perinephric inflammatory stranding as well as subtle areas of wedge-shaped hypoenhancement on coronal imaging, raising the possibility of pyelonephritis. Correlate. Suspect fibroid uterus. Indeterminate left adrenal nodule. Current recommendations suggest follow-up adrenal protocol CT at 12 months to document stability and confirm that this represents a benign adenoma. Fluid density lesion about the left adnexa measuring 2.5 x 1.7 cm in size, likely benign. View mildly enlarged michelle hepatic and retroperitoneal lymph nodes, nonspecific though potentially reactive. TECHNICAL DOCUMENTATION: Quality ID # [id number]: Final reports with documentation of one or more dose reduction techniques (e.g., Automated exposure control, adjustment of the mA and/or kV according to patient size, use of iterative reconstruction technique) copyright 2011 [employer]- All Rights Reserved Assessment and Plan - Diagnosis (1) Sepsis Is this a current diagnosis for this admission?: Yes Plan: Blood culture positive for E. coli which is pansensitive so Zosyn is switched to ceftriaxone. (2) Gram-negative bacteremia Is this a current diagnosis for this admission?: Yes Plan: Due to E. coli which is pansensitive (3) Pyelonephritis of right kidney Is this a current diagnosis for this admission?: Yes Plan: Continue current antibiotics. (4) Acute kidney injury Is this a current diagnosis for this admission?: Yes Plan: Her kidney function is improving with hydration. (5) Leukocytosis Is this a current diagnosis for this admission?: Yes Plan: White cell count is trending down. (6) Type 2 diabetes mellitus Is this a current diagnosis for this admission?: Yes Plan: Continue current regimen (7) Hypertension Qualifiers: Hypertension type: essential hypertension Qualified Code(s): I10 - Essential (primary) hypertension Is this a current diagnosis for this admission?: Yes Plan: Resume home medication (8) Hyperlipidemia Qualifiers: Hyperlipidemia type: unspecified Qualified Code(s): E78.5 - Hyperlipidemia, unspecified Is this a current diagnosis for this admission?: Yes Plan: Resume home medication (9) Obesity (BMI 30.0-34.9) Is this a current diagnosis for this admission?: Yes Plan: Patient encouraged to do lifestyle modification.
[2018-11-06] MEDS: MAGNESIUM HYDROXIDE SUSP 30 ML UDCUP PO PRN (20:21)
[2018-11-07 05:04] LABS: ABSOLUTE BASOPHILS # (AUTO) 0.1 10^3/uL (0.0-0.2); ABSOLUTE EOSINOPHILS # (AUTO) 0.2 10^3/uL (0.0-0.6); ABSOLUTE MONOCYTES (AUTO) 0.2 10^3/uL (0.1-1.4); ABSOLUTE NEUT (AUTO) 4.3 10^3/uL (1.7-8.2); EOSINOPHILS % (AUTO) 3.1 % (0-6); HEMATOCRIT 26.2 % (36.0-47.0); LYMPHOCYTES % (AUTO) 17.7 % (13-45); MEAN CORPUSCULAR HEMOGLOBIN 31.2 pg (27.0-33.4); MEAN CORPUSCULAR HGB CONC 34.5 g/dL (32.0-36.0); MEAN CORPUSCULAR VOLUME 91 fl (80-97); MONOCYTES % (AUTO) 3.1 % (3-13); PLATELET COUNT 156 10^3/uL (150-450); RED BLOOD COUNT 2.89 10^6/uL (3.72-5.28); RED CELL DISTRIBUTION WIDTH 15.8 % (11.5-14.0); SEGMENTED NEUTROPHILS % (AUTO) 75.1 % (42-78); TOTAL CELLS COUNTED % (AUTO) 100 %; WHITE BLOOD COUNT 5.7 10^3/uL (4.0-10.5)
[2018-11-07] MEDS: HEPARIN SOD (PORCINE) 5,000 UNIT/ML 1 ML SYRINGE SUBCUT SCH ×3 (05:13→21:03)
[2018-11-07 05:20] LABS: ANION GAP 10 (5-19); BLOOD UREA NITROGEN 29 mg/dL (7-20); CALCIUM 8.2 mg/dL (8.4-10.2); CARBON DIOXIDE 20 mmol/L (22-30); CHLORIDE 109 mmol/L (98-107); GLUCOSE 81 mg/dL (75-110); POTASSIUM 4.3 mmol/L (3.6-5.0); SODIUM 138.7 mmol/L (137-145)
[2018-11-07] MEDS: METOPROLOL SUCCINATE 25 MG TAB.SR.24H PO SCH (10:18)
[2018-11-07] MEDS: CEFTRIAXONE 2 GM/D5W RTU 2 GM/50 ML RTUPB IV SCH (10:19)
[2018-11-07] MEDS: ACETAMINOPHEN 325 MG TABLET PO PRN ×2 (10:19→21:02)
[2018-11-07] MEDS: DULOXETINE HCL 30 MG CAPSULE.DR PO SCH (10:33)
--- NOTE | 2018-11-07 11:29 | PDOC PROGRESS REPORT ---
Subjective Progress Note for:: 11/07/18 Subjective:: This is 58 years old female patient with past medical history of depression rheumatoid arthritis, obesity, mixed connective tissue disease, constipation predominant IBS, fibromyalgia on Humira, hypertension presented with chief complaints of 6 hours duration of right flank pain. Urinalysis positive for urinary tract infection. And her blood work shows market leukocytosis of 22,000 and her creatinine was 1.53. Her CT scan reveals right- sided pyelonephritis without abscess or hydronephrosis. Her her blood culture grew gram-negative rods. Patient has been started on Zosyn. And this morning when I see her she reported that the flank pain is relatively better. Her white cell counts trended down to 16 and her creatinine is trending down from 1.53- 1.43. 11/06/2018: Patient seen and examined while she is resting in bed. She reports this her right flank pain is improving. Her vital signs are stable. She complains of shortness of breath. I listen to her chest no wheezing or crackles. Patient is non-smoker and no history of secondhand smoking. Patient has been on Humira and methotrexate for her seronegative rheumatoid arthritis and mixed connective tissue disease. Since methotrexate is hepatotoxic as well as pulmonary toxic the possibility of pulmonary fibrosis should be considered. 2 bottles of her blood culture are positive for E. coli which is pansensitive so her Zosyn is switched to ceftriaxone. 11/07/2018: Patient seen while sitting up in bed and enjoying her breakfast. Reports her flank pain is subsiding. Her 4 bottles of blood culture are positive for E. coli which is pansensitive. I will continue her ceftriaxone. Reason For Visit: ACUTE PYELONEPHRITIS,ARF,RA ON MARLON Physical Exam Vital Signs: Temp Pulse Resp BP Pulse Ox 98.4 F 95 20 148/88 H 95 11/07/18 07:36 11/07/18 08:54 11/07/18 08:54 11/07/18 07:36 11/07/18 08:54 Intake & Output 11/06/18 11/07/18 11/08/18 06:59 06:59 06:59 Intake Total 3703 1030 Output Total 3550 2050 Balance 153 -1020 Weight 87.2 kg 87 kg General appearance: PRESENT: no acute distress Head exam: PRESENT: atraumatic Eye exam: PRESENT: conjunctiva pink Neck exam: ABSENT: carotid bruit, JVD, lymphadenopathy, thyromegaly Respiratory exam: PRESENT: clear to auscultation dangelo. ABSENT: rales, rhonchi, wheezes Cardiovascular exam: PRESENT: RRR. ABSENT: diastolic murmur, rubs, systolic murmur GI/Abdominal exam: PRESENT: normal bowel sounds, soft. ABSENT: distended, guarding, mass, organolmegaly, rebound, tenderness Neurological exam: PRESENT: alert, awake, oriented to person, oriented to place, oriented to time, oriented to situation Results Laboratory Results: 11/07/18 04:40 11/07/18 04:40 11/07/18 11/07/18 04:40 04:40 WBC 5.7 RBC 2.89 L Hgb 9.0 L Hct 26.2 L MCV 91 MCH 31.2 MCHC 34.5 RDW 15.8 H Plt Count 156 Seg Neutrophils % 75.1 Lymphocytes % 17.7 Monocytes % 3.1 Eosinophils % 3.1 Basophils % 1.0 Absolute Neutrophils 4.3 Absolute Lymphocytes 1.0 Absolute Monocytes 0.2 Absolute Eosinophils 0.2 Absolute Basophils 0.1 Sodium 138.7 Potassium 4.3 Chloride 109 H Carbon Dioxide 20 L Anion Gap 10 BUN 29 H Creatinine 1.15 Est GFR ( Amer) 59 L Est GFR (Non-Af Amer) 49 L Glucose 81 Calcium 8.2 L 11/05/18 14:30 Blood Blood Culture - Final Escherichia Coli 11/05/18 13:48 Blood Blood Culture - Final Escherichia Coli 11/04/18 22:20 Blood Blood Culture - Final Escherichia Coli 11/04/18 21:30 Blood Blood Culture - Final Escherichia Coli Impressions: Chest X-Ray 11/04/18 21:18 IMPRESSION: 1. Bilateral hilar fullness concerning for possible hilar and/or mediastinal lymphadenopathy. This appearance is new when compared to the prior study. This could be projectional in nature. Consider CT imaging of the chest as clinically indicated. 2. No evidence of acute intrathoracic disease. Abdomen/Pelvis CT 11/04/18 21:19 IMPRESSION: Edematous right kidney demonstrating perinephric inflammatory stranding as well as subtle areas of wedge-shaped hypoenhancement on coronal imaging, raising the possibility of pyelonephritis. Correlate. Suspect fibroid uterus. Indeterminate left adrenal nodule. Current recommendations suggest follow-up adrenal protocol CT at 12 months to document stability and confirm that this represents a benign adenoma. Fluid density lesion about the left adnexa measuring 2.5 x 1.7 cm in size, likely benign. View mildly enlarged michelle hepatic and retroperitoneal lymph nodes, nonspecific though potentially reactive. TECHNICAL DOCUMENTATION: Quality ID # [id number]: Final reports with documentation of one or more dose reduction techniques (e.g., Automated exposure control, adjustment of the mA and/or kV according to patient size, use of iterative reconstruction technique) copyright 2011 [employer]- All Rights Reserved Assessment and Plan - Diagnosis (1) Sepsis Is this a current diagnosis for this admission?: Yes Plan: Blood culture positive for E. coli which is pansensitive so Zosyn is switched to ceftriaxone. (2) Gram-negative bacteremia Is this a current diagnosis for this admission?: Yes Plan: Due to E. coli which is pansensitive (3) Pyelonephritis of right kidney Is this a current diagnosis for this admission?: Yes Plan: Continue current antibiotics. (4) Acute kidney injury Is this a current diagnosis for this admission?: Yes Plan: Her kidney function is improving with hydration. (5) Leukocytosis Is this a current diagnosis for this admission?: Yes Plan: White cell count is trending down. (6) Type 2 diabetes mellitus Is this a current diagnosis for this admission?: Yes Plan: Continue current regimen (7) Hypertension Qualifiers: Hypertension type: essential hypertension Qualified Code(s): I10 - Essential (primary) hypertension Is this a current diagnosis for this admission?: Yes Plan: Resume home medication (8) Hyperlipidemia Qualifiers: Hyperlipidemia type: unspecified Qualified Code(s): E78.5 - Hyperlipidemia, unspecified Is this a current diagnosis for this admission?: Yes Plan: Resume home medication (9) Obesity (BMI 30.0-34.9) Is this a current diagnosis for this admission?: Yes Plan: Patient encouraged to do lifestyle modification.
[2018-11-07] MEDS: MAGNESIUM HYDROXIDE SUSP 30 ML UDCUP PO PRN (21:03)
[2018-11-08] MEDS: HEPARIN SOD (PORCINE) 5,000 UNIT/ML 1 ML SYRINGE SUBCUT SCH ×3 (07:18→21:17)
[2018-11-08] MEDS: METOPROLOL SUCCINATE 25 MG TAB.SR.24H PO SCH (10:49)
[2018-11-08] MEDS: DULOXETINE HCL 30 MG CAPSULE.DR PO SCH (10:49)
[2018-11-08] MEDS: CEFTRIAXONE 2 GM/D5W RTU 2 GM/50 ML RTUPB IV SCH (10:50)
--- NOTE | 2018-11-08 11:52 | PDOC PROGRESS REPORT ---
Subjective Progress Note for:: 11/08/18 Subjective:: This is 58 years old female patient with past medical history of depression rheumatoid arthritis, obesity, mixed connective tissue disease, constipation predominant IBS, fibromyalgia on Humira, hypertension presented with chief complaints of 6 hours duration of right flank pain. Urinalysis positive for urinary tract infection. And her blood work shows market leukocytosis of 22,000 and her creatinine was 1.53. Her CT scan reveals right- sided pyelonephritis without abscess or hydronephrosis. Her her blood culture grew gram-negative rods. Patient has been started on Zosyn. And this morning when I see her she reported that the flank pain is relatively better. Her white cell counts trended down to 16 and her creatinine is trending down from 1.53- 1.43. 11/06/2018: Patient seen and examined while she is resting in bed. She reports this her right flank pain is improving. Her vital signs are stable. She complains of shortness of breath. I listen to her chest no wheezing or crackles. Patient is non-smoker and no history of secondhand smoking. Patient has been on Humira and methotrexate for her seronegative rheumatoid arthritis and mixed connective tissue disease. Since methotrexate is hepatotoxic as well as pulmonary toxic the possibility of pulmonary fibrosis should be considered. 2 bottles of her blood culture are positive for E. coli which is pansensitive so her Zosyn is switched to ceftriaxone. 11/07/2018: Patient seen while sitting up in bed and enjoying her breakfast. Reports her flank pain is subsiding. Her 4 bottles of blood culture are positive for E. coli which is pansensitive. I will continue her ceftriaxone. 11/08/2018: Patient seen resting in bed comfortably. Repeat blood culture still pending. If the blood culture returned negative patient is potential discharge for tomorrow with p.o. antibiotics. Reason For Visit: ACUTE PYELONEPHRITIS,ARF,RA ON MARLON Physical Exam Vital Signs: Temp Pulse Resp BP Pulse Ox 98.1 F 89 18 138/85 H 94 11/08/18 08:00 11/08/18 09:23 11/08/18 09:23 11/08/18 08:00 11/08/18 09:23 Intake & Output 11/07/18 11/08/18 11/09/18 06:59 06:59 06:59 Intake Total 1030 850 Output Total 2050 300 Balance -1020 550 Weight 87 kg 87.7 kg General appearance: PRESENT: no acute distress Mouth exam: PRESENT: moist Neck exam: ABSENT: carotid bruit, JVD, lymphadenopathy, thyromegaly Respiratory exam: PRESENT: clear to auscultation dangelo. ABSENT: rales, rhonchi, wheezes Cardiovascular exam: PRESENT: RRR. ABSENT: diastolic murmur, rubs, systolic murmur Neurological exam: PRESENT: alert, awake, oriented to person, oriented to place, oriented to time, oriented to situation Results Laboratory Results: 11/07/18 04:40 11/07/18 04:40 11/05/18 14:30 Blood Blood Culture - Final Escherichia Coli 11/05/18 13:48 Blood Blood Culture - Final Escherichia Coli 11/04/18 22:20 Blood Blood Culture - Final Escherichia Coli Impressions: Chest X-Ray 11/04/18 21:18 IMPRESSION: 1. Bilateral hilar fullness concerning for possible hilar and/or mediastinal lymphadenopathy. This appearance is new when compared to the prior study. This could be projectional in nature. Consider CT imaging of the chest as clinically indicated. 2. No evidence of acute intrathoracic disease. Abdomen/Pelvis CT 11/04/18 21:19 IMPRESSION: Edematous right kidney demonstrating perinephric inflammatory stranding as well as subtle areas of wedge-shaped hypoenhancement on coronal imaging, raising the possibility of pyelonephritis. Correlate. Suspect fibroid uterus. Indeterminate left adrenal nodule. Current recommendations suggest follow-up adrenal protocol CT at 12 months to document stability and confirm that this represents a benign adenoma. Fluid density lesion about the left adnexa measuring 2.5 x 1.7 cm in size, likely benign. View mildly enlarged michelle hepatic and retroperitoneal lymph nodes, nonspecific though potentially reactive. TECHNICAL DOCUMENTATION: Quality ID # 436: Final reports with documentation of one or more dose reduction techniques (e.g., Automated exposure control, adjustment of the mA and/or kV according to patient size, use of iterative reconstruction technique) copyright 2011 [employer]- All Rights Reserved Assessment and Plan - Diagnosis (1) Sepsis Is this a current diagnosis for this admission?: Yes Plan: Blood culture positive for E. coli which is pansensitive so Zosyn is switched to ceftriaxone. (2) Gram-negative bacteremia Is this a current diagnosis for this admission?: Yes Plan: Due to E. coli which is pansensitive (3) Pyelonephritis of right kidney Is this a current diagnosis for this admission?: Yes Plan: Continue current antibiotics. (4) Acute kidney injury Is this a current diagnosis for this admission?: Yes Plan: Her kidney function is improving with hydration. (5) Leukocytosis Is this a current diagnosis for this admission?: Yes Plan: White cell count is trending down. (6) Type 2 diabetes mellitus Is this a current diagnosis for this admission?: Yes Plan: Continue current regimen (7) Hypertension Qualifiers: Hypertension type: essential hypertension Qualified Code(s): I10 - Essential (primary) hypertension Is this a current diagnosis for this admission?: Yes Plan: Resume home medication (8) Hyperlipidemia Qualifiers: Hyperlipidemia type: unspecified Qualified Code(s): E78.5 - Hyperlipidemia, unspecified Is this a current diagnosis for this admission?: Yes Plan: Resume home medication (9) Obesity (BMI 30.0-34.9) Is this a current diagnosis for this admission?: Yes Plan: Patient encouraged to do lifestyle modification.
[2018-11-08] MEDS: ACETAMINOPHEN 325 MG TABLET PO PRN (21:13)
[2018-11-09] MEDS: HEPARIN SOD (PORCINE) 5,000 UNIT/ML 1 ML SYRINGE SUBCUT SCH (05:11)
--- NOTE | 2018-11-09 08:54 | PDOC DISCHARGE SUMMARY ---
General - Admit/Disc Date/PCP Admission Date/Primary Care Provider: 11/04/18 23:36 ANA POE Discharge Date: 11/09/18 - Discharge Diagnosis (1) Sepsis Is this a current diagnosis for this admission?: Yes (2) Gram-negative bacteremia Is this a current diagnosis for this admission?: Yes (3) Pyelonephritis of right kidney Is this a current diagnosis for this admission?: Yes (4) Acute kidney injury Is this a current diagnosis for this admission?: Yes (5) Leukocytosis Is this a current diagnosis for this admission?: Yes (6) Type 2 diabetes mellitus Is this a current diagnosis for this admission?: Yes (7) Hypertension Is this a current diagnosis for this admission?: Yes (8) Hyperlipidemia Is this a current diagnosis for this admission?: Yes (9) Obesity (BMI 30.0-34.9) Is this a current diagnosis for this admission?: Yes - Additional Information Resuscitation Status: Full Code Home Medications: Adalimumab [Humira(Cf) Pen] 40 mg PO [id number] 11/05/18 Bupropion HCl [Wellbutrin Sr 150 mg Tablet] 150 mg PO Q12 11/05/18 Celecoxib [Celebrex 200 mg Capsule] 200 mg PO QHS 11/05/18 Cholecalciferol (Vitamin D3) [Vitamin D3 5000 unit Capsule] 5,000 unit PO DAILY 11/05/18 Diltiazem HCl [Diltiazem 24Hr ER] 180 mg PO DAILY 11/05/18 Duloxetine HCl [Cymbalta] 60 mg PO BID 11/05/18 Fish Oil/Dha/Epa [Fish Oil 1,200 mg Fish Oil] 1 cap PO DAILY 11/05/18 Folic Acid [Folvite 1 mg Tablet] 2 mg PO DAILY 11/05/18 Losartan Potassium [Cozaar 50 mg Tablet] 50 mg PO DAILY 11/05/18 Lysine HCl [l-Lysine] 1,000 mg PO DAILY 11/05/18 Magnesium Oxide [Mag-Ox 400 mg Tablet] 400 mg PO DAILY 11/05/18 Methotrexate Sodium [Rheumatrex 2.5 mg Tablet] 10 mg PO WE@,18 11/05/18 Mirabegron [Myrbetriq] 50 mg PO DAILY 11/05/18 Pantoprazole Sodium [Protonix [address] Tablet] 40 mg PO DAILY 11/05/18 Plecanatide [Trulance] 3 mg PO DAILY 11/05/18 Valacyclovir HCl [Valtrex 500 mg Tablet] 500 mg PO BID 11/05/18 History of Present Illness History of Present Illness: TAHIR PITTMAN is a 58 year old female with a past medical history of MRSA colonization, hypertension, constipation predominant IBS, seronegative rheumatoid arthritis, mixed connective tissue disease and fibromyalgia on Humira. She presents with 6 hours of fever abdominal pain nausea without vom iting status post Edy fundoplication. She admits to small volume polyuria denies dysuria in the emergency room she is found to have severe sepsis with hypotension, tachycardia and fever, CT reveals right-sided pyelonephritis without abscess or hydronephrosis. She started on empiric antibiotics, and IV fluid challenge and referred to the hospitalist for admission. Hospital Course Hospital Course: This is 58 years old female patient with past medical history of depression rheumatoid arthritis, obesity, mixed connective tissue disease, con stipation predominant IBS, fibromyalgia on Humira, hypertension presented with chief complaints of 6 hours duration of right flank pain. Urinalysis positive for urinary tract infection. And her blood work shows market leukocytosis of 22,000 and her creatinine was 1.53. Her CT scan reveals right-sided pyelonephritis without abscess or hydronephrosis. Her her blood culture grew gram-negative rods. Patient has been started on Zosyn. And this morning when I see her she reported that the flank pain is relatively better. Her white cell counts trended down to 16 and her creatinine is trending down from 1.53-1.43. 11/06/2018: Patient seen and examined while she is resting in bed. She reports this her right flank pain is improving. Her vital signs are stable. She complains of shortness of breath. I listen to her chest no wheezing or crackles. Patient is non-smoker and no history of secondhand smoking. Patient has been on Humira and methotrexate for her seronegative rheumatoid arthritis and mixed connective tissue disease. Since methotrexate is hepatotoxic as well as pulmonary toxic the possibility of pulmonary fibrosis should be considered. 2 bottles of her blood culture are positive for E. coli which is pansensitive so her Zosyn is switched to ceftriaxone. 11/07/2018: Patient seen while sitting up in bed and enjoying her breakfast. Reports her flank pain is subsiding. Her 4 bottles of blood culture are positive for E. coli which is pansensitive. I will continue her ceftriaxone. 11/08/2018: Patient seen resting in bed comfortably. Repeat blood culture still pending. If the blood culture returned negative patient is potential discharge for tomorrow with p.o. antibiotics. 11/09/2018: Patient seen and examined at bedside. She is awake alert oriented patient is not in pain or distress. Her repeat 2 sets of blood cultures are negative for E. coli. Patient remained afebrile. She eats well tolerates well. Her flank pain subsided. Her vital signs and blood works are unremarkable. Patient is stable enough to go home today. I will continue all her home medication and I will send her with Levaquin 500 mg p.o. daily for 7 days. Physical Exam Vital Signs: Temp Pulse Resp BP Pulse Ox 98.6 F 66 17 136/74 H 96 11/08/18 23:52 11/09/18 02:00 11/08/18 23:52 11/08/18 23:52 11/08/18 23:52 Intake & Output 11/08/18 11/09/18 11/10/18 06:59 06:59 06:59 Intake Total 850 1130 Output Total 300 4100 Balance 550 -2970 Weight 87.7 kg 87.8 kg General appearance: PRESENT: no acute distress Head exam: PRESENT: atraumatic Mouth exam: PRESENT: moist Neck exam: ABSENT: carotid bruit, JVD, lymphadenopathy, thyromegaly Respiratory exam: PRESENT: clear to auscultation dangelo. ABSENT: rales, rhonchi, wheezes Cardiovascular exam: PRESENT: RRR. ABSENT: diastolic murmur, rubs, systolic murmur GI/Abdominal exam: PRESENT: normal bowel sounds, soft. ABSENT: distended, guarding, mass, organolmegaly, rebound, tenderness Neurological exam: PRESENT: alert, awake, oriented to person, oriented to place, oriented to time, oriented to situation Results Laboratory Results: 11/07/18 04:40 11/07/18 04:40 Impressions: Chest X-Ray 11/04/18 21:18 IMPRESSION: 1. Bilateral hilar fullness concerning for possible hilar and/or mediastinal lymphadenopathy. This appearance is new when compared to the prior study. This could be projectional in nature. Consider CT imaging of the chest as clinically indicated. 2. No evidence of acute intrathoracic disease. Abdomen/Pelvis CT 11/04/18 21:19 IMPRESSION: Edematous right kidney demonstrating perinephric inflammatory stranding as well as subtle areas of wedge-shaped hypoenhancement on coronal imaging, raising the possibility of pyelonephritis. Correlate. Suspect fibroid uterus. Indeterminate left adrenal nodule. Current recommendations suggest follow-up adrenal protocol CT at 12 months to document stability and confirm that this represents a benign adenoma. Fluid density lesion about the left adnexa measuring 2.5 x 1.7 cm in size, likely benign. View mildly enlarged michelle hepatic and retroperitoneal lymph nodes, nonspecific though potentially reactive. TECHNICAL DOCUMENTATION: Quality ID # 436: Final reports with documentation of one or more dose reduction techniques (e.g., Automated exposure control, adjustment of the mA and/or kV according to patient size, use of iterative reconstruction technique) copyright 2011 [employer]- All Rights Reserved Qualifiers - * PATIENT BEING DISCHARGED WITH ANY OF THE FOLLOWING DIAGNOSIS: No Acute Heart Failure - Is this a Heart Failure Patient?: No LVEF < 40%?: No- if no continue to question #3 3. Anticoagulant therapy for permanect/persistent/paraoxysmal Afib or Aflutter: N/A Follow-up Appointment scheduled within 7 days?: Yes
[2018-11-09] MEDS: METOPROLOL SUCCINATE 25 MG TAB.SR.24H PO SCH (10:03)
[2018-11-09] MEDS: DULOXETINE HCL 30 MG CAPSULE.DR PO SCH (10:03)
[2018-11-09] MEDS: CEFTRIAXONE 2 GM/D5W RTU 2 GM/50 ML RTUPB IV SCH (10:04)
[2018-11-09 11:06] VITALS: BP 123/75
== END 2018-11-09 13:08 | disposition home or self-care (01) | DRG 872 ==
LOC: ER 13:45 → EH 23:36 → 4N 11-05 01:12
PROVIDERS: ADMIT Internal Medicine; ATTEND Internal Medicine
DX: A41.51 Sepsis due to Escherichia coli [E. coli] (principal); N12 Tubulo-interstitial nephritis, not specified as acute or chronic; M35.1 Other overlap syndromes; N17.9 Acute kidney failure, unspecified; I10 Essential (primary) hypertension; M79.7 Fibromyalgia; K21.9 Gastro-esophageal reflux disease without esophagitis; M81.0 Age-related osteoporosis without current pathological fracture; K58.1 Irritable bowel syndrome with constipation; M06.00 Rheumatoid arthritis without rheumatoid factor, unspecified site; R65.20 Severe sepsis without septic shock; E66.9 Obesity, unspecified; E11.9 Type 2 diabetes mellitus without complications; E78.5 Hyperlipidemia, unspecified
CPT/HCPCS: 36415; 71046; 74177; 80048; 80053; 81001; 83605; 83690; 83735; 85025; 87040; 87077; 87186; 94640; J0696; J1644; J1885; J2270; J2405; J2543; J3370; J3490; J7030; J7050; J7060; J7620

== ENCOUNTER → 2019-02-12 | Outpatient (CLI) | payer OTHER ==
--- NOTE | 2019-02-12 16:21 | WOMENS IMAGING REPORT ---
EXAM DESCRIPTION: 3D SCREENING MAMMO BILAT COMPLETED DATE/TIME: 02/12/2019 3:36 pm REASON FOR STUDY: Z12.31 SCREENING MAMMO Z12.31 ENCNTR SCREEN MAMMOGRAM FOR MALIGNANT NEOPLASM OF B RE COMPARISON: Multiple since 2008 EXAM PARAMETERS: Views: Standard craniocaudal and mediolateral oblique views of each breast recorded using digital acquisition and breast tomosynthesis. Read with the assistance of CAD. .[facility] - R2 [employer] Person Version 9.2 LIMITATIONS: None. FINDINGS: No suspicious masses, suspicious calcifications or architectural distortion. No areas of c oncern. IMPRESSION: NEGATIVE MAMMOGRAM. BIRADS 1. BREAST DENSITY: b. There are scattered areas of fibroglandular density. BIRAD: ASSESSMENT: 1 NEGATIVE RECOMMENDATION: ROUTINE SCREENING COMMENT: The patient has been notified of the results by letter per MQSA requirements. Additional no tification policies are in place for contacting patient with suspicious or incomplete findings. Quality ID #[id number]: The [employer] recommends an annual screening mammogram for women aged 40 years or over. This facility utilizes a reminder system to ensure that all patients receive reminder letters, and/or direct phone calls for appointments. This includes reminders for routine scr eening mammograms, diagnostic mammograms, or other Breast Imaging Interventions when appropriate. Th is patient will be placed in the appropriate reminder system. TECHNICAL DOCUMENTATION: FINDING NUMBER: (1) ASSESSMENT: (1) JOB ID: [id number] [employer]- All Rights Reserved Reading location - IP/workstation name: [email or web address]
== END ==
LOC: WI 15:15
PROVIDERS: ATTEND Nurse Practitioner
DX: Z12.31 Encounter for screening mammogram for malignant neoplasm of breast (principal)
CPT/HCPCS: 77063; 77067

== ENCOUNTER 2019-11-29 06:55 | Emergency (ER) | payer OTHER ==
[2019-11-29] MEDS ORDERED: NORMAL SALINE 1000 ML 1,000 ML IV ONE (08:55)
[2019-11-29] MEDS ORDERED: CEFEPIME 2 GM/D5W RTU 2 GM/50 ML RTUPB IV ONE (08:55)
[2019-11-29] MEDS ORDERED: VANCOMYCIN HCL INJ 1000 MG VIAL IV ONE (08:57)
[2019-11-29 09:28] LABS: ABSOLUTE BASOPHILS # (AUTO) 0.1 10^3/uL (0.0-0.2); ABSOLUTE EOSINOPHILS # (AUTO) 0.1 10^3/uL (0.0-0.6); ABSOLUTE LYMPHOCYTES (AUTO) 1.3 10^3/uL (0.5-4.7); ABSOLUTE MONOCYTES (AUTO) 0.9 10^3/uL (0.1-1.4); ABSOLUTE NEUT (AUTO) 7.8 10^3/uL (1.7-8.2); BASOPHILS % (AUTO) 0.8 % (0-2); EOSINOPHILS % (AUTO) 0.9 % (0-6); HEMATOCRIT 35.8 % (36.0-47.0); HEMOGLOBIN 12.4 g/dL (12.0-15.5); LYMPHOCYTES % (AUTO) 12.6 % (13-45); MEAN CORPUSCULAR HEMOGLOBIN 32.5 pg (27.0-33.4); MEAN CORPUSCULAR HGB CONC 34.5 g/dL (32.0-36.0); MEAN CORPUSCULAR VOLUME 94 fl (80-97); MONOCYTES % (AUTO) 8.6 % (3-13); PLATELET COUNT 231 10^3/uL (150-450); RED BLOOD COUNT 3.81 10^6/uL (3.72-5.28); RED CELL DISTRIBUTION WIDTH 13.3 % (11.5-14.0); SEGMENTED NEUTROPHILS % (AUTO) 77.1 % (42-78); TOTAL CELLS COUNTED % (AUTO) 100 %; WHITE BLOOD COUNT 10.1 10^3/uL (4.0-10.5)
[2019-11-29] MEDS ORDERED: MORPHINE SULFATE 10 MG/ML INJ IV ONE (09:29)
[2019-11-29] MEDS ORDERED: ONDANSETRON HCL INJ/PF 4 MG/2 ML SDV IV ONE (09:29)
[2019-11-29 09:33] LABS: ALBUMIN 4.6 g/dL (3.5-5.0); ALKALINE PHOSPHATASE 90 U/L (38-126); ANION GAP 10 (5-19); ASPARTATE AMINO TRANSFERASE 29 U/L (14-36); BILIRUBIN,TOTAL 0.5 mg/dL (0.2-1.3); BLOOD UREA NITROGEN 15 mg/dL (7-20); CALCIUM 9.8 mg/dL (8.4-10.2); CARBON DIOXIDE 24 mmol/L (22-30); CHLORIDE 102 mmol/L (98-107); GLUCOSE 90 mg/dL (75-110); POTASSIUM 4.2 mmol/L (3.6-5.0); TOTAL PROTEIN 7.5 g/dL (6.3-8.2)
--- NOTE | 2019-11-29 10:38 | RADIOLOGY REPORT (SQ) ---
EXAM DESCRIPTION: ACUTE ABDOMEN SERIES IMAGES COMPLETED DATE/TIME: 11/29/2019 10:22 am REASON FOR STUDY: abd pain/LLQ rash COMPARISON: Chest x-ray dated 11/04/2018 NUMBER OF VIEWS: Three views. TECHNIQUE: Frontal chest, supine abdomen and upright/decubitus abdomen radiographic images acquired. LIMITATIONS: None. FINDINGS: CHEST: Lungs clear of infiltrates. Bilateral hilar fullness previously described has reso lved. FREE AIR: None. No abnormal gas collections. BOWEL GAS PATTERN: Nonobstructive pattern. No dilated loops or air fluid levels. Moderate amount of stool throughout the colon. CALCIFICATIONS: No suspicious calcifications. HARDWARE: There are surgical clips in the left upper quadrant and in the pelvis. SOFT TISSUES: No gross mass or suggestion of organomegaly. BONES: No acute fracture. No worrisome bone lesions. OTHER: No other significant finding. IMPRESSION: Mild to moderate constipation. No obstruction. TECHNICAL DOCUMENTATION: JOB ID: [id number] 2010 [employer]- All Rights Reserved Reading location - IP/workstation name: [email or web address]
[2019-11-29 10:49] LABS: APPEARANCE,URINE CLEAR; BILIRUBIN,URINE NEGATIVE (NEGATIVE); COLOR,URINE STRAW; GLUCOSE, URINE NEGATIVE (NEGATIVE); KETONES,URINE NEGATIVE (NEGATIVE); LEUKOCYTE ESTERASE,URINE NEGATIVE (NEGATIVE); NITRITE,URINE NEGATIVE (NEGATIVE); PROTEIN,URINE NEGATIVE (NEGATIVE); URINE SPECIFIC GRAVITY 1.004; UROBILINOGEN,URINE NEGATIVE mg/dL (<2.0)
--- NOTE | 2019-11-29 12:07 | RADIOLOGY REPORT (SQ) ---
EXAM DESCRIPTION: U/S ABDOMEN LIMITED W/O DOP IMAGES COMPLETED DATE/TIME: 11/29/2019 11:51 am REASON FOR STUDY: cellulitis LLQ, and abscess COMPARISON: None. TECHNIQUE: Dynamic and static grayscale images acquired of the localized site of clinical concern an d recorded on PACS. Additional selected color Doppler and spectral images recorded. SITE OF CONCERN: Left lower quadrant LIMITATIONS: None. FINDINGS: SKIN AND SUBCUTANEOUS TISSUES: There is skin thickening. No focal abscess or fluid collec tion. DEEP SOFT TISSUES/MUSCLES: No masses. No fluid collections. No edema. VASCULAR: No increased or decreased vascularity. No occlusions. OTHER: No other significant finding. IMPRESSION: Skin thickening. No focal abscess or fluid collection. TECHNICAL DOCUMENTATION: JOB ID: [id number] 2010 [employer]- All Rights Reserved Reading location - IP/workstation name: [email or web address]
--- NOTE | 2019-11-29 12:58 | ER Document Report ---
Entered by CISCO IABRRA SCRIBE 11/29/19 0834 Acting as scribe for:KARELY GEORGE MD ED General - General Chief Complaint: Abscess Stated Complaint: RASH ON LEFT FLANK Time Seen by Provider: 11/29/19 07:38 Primary Care Provider: ALVARO LOWERY FNP [Primary Care Provider] - Follow up as needed Information source: Patient Notes: This 59 year old female patient presents to the emergency department today with complaints of a rash in the LLQ of her abdomen. Patient states she has had the rash for the past x5 days and visited urgent care x2 days ago. Patient states she was given antibiotics and was told it may be cellulites. Patient states she was told to visit the ED if the rash grew outside of the circles drawn around the rash x2 days ago. Patient states she has recently visited [place] and noticed a small scab on her abdomen while there. Patient states she scratched the scab off and there was a small red bump x5 days ago that has now grown into a large rash. Denies any fever, chills, urinary symptoms, drainage from the rash, or muscle aches above her baseline. 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 TRAVEL OUTSIDE OF THE [place] IN LAST 30 DAYS: No - Related Data Allergies/Adverse Reactions: hydroxychloroquine [From Plaquenil] Allergy (Verified 11/29/19 07:55) Past Medical History - General Information source: Patient - Social History Smoking Status: Never Smoker Cigarette use (# per day): No Frequency of alcohol use: Rare Lives with: Family Family History: Reviewed & Not Pertinent, Hypertension - Past Medical History Cardiac Medical History: Reports: Hx Hypertension Renal/ Medical History: Reports: Other - Sepsis from UTI 2019 GI Medical History: Reports: Hx Gastroesophageal Reflux Disease Musculoskeletal Medical History: Reports Hx Arthritis - osteo, Psychiatric Medical History: Reports: Hx Depression Past Surgical History: Reports: Hx Abdominal Surgery, Hx Section, Hx Orthopedic Surgery - knee, neck - Immunizations Hx Diphtheria, Pertussis, Tetanus Vaccination: Yes Review of Systems - Review of Systems Constitutional: See HPI. denies: Chills, Fever EENT: No symptoms reported Cardiovascular: No symptoms reported Respiratory: No symptoms reported Gastrointestinal: No symptoms reported Genitourinary: See HPI Female Genitourinary: No symptoms reported Musculoskeletal: See HPI. denies: Muscle pain Skin: See HPI, Rash - LLQ Hematologic/Lymphatic: No symptoms reported Neurological/Psychological: No symptoms reported -: Yes All other systems reviewed and negative Physical Exam - Vital signs Vitals: Temp Pulse Resp BP Pulse Ox 98.4 F 94 18 138/81 H 95 11/29/19 06:59 11/29/19 06:59 11/29/19 06:59 11/29/19 06:59 11/29/19 06:59 - General General appearance: Appears well, Alert - HEENT Head: Normocephalic, Atraumatic Eyes: Normal Pupils: PERRL - Respiratory Respiratory status: No respiratory distress Chest status: Nontender Breath sounds: Normal Chest palpation: Normal - Cardiovascular Rhythm: Regular Heart sounds: Normal auscultation Murmur: No - Abdominal Distension: No distension Bowel sounds: Normal Tenderness: Nontender Notes: Macular rash on the LLQ 30 cm in length and 20 cm in width. Erythema of the skin and warm to touch. - Extremities General upper extremity: Normal inspection. No: Edema General lower extremity: Normal inspection. No: Edema - Neurological Neuro grossly intact: Yes Cognition: Normal Orientation: AAOx4 Speech: Normal - Psychological Associated symptoms: Normal affect, Normal mood - Skin Skin Temperature: Warm Skin Moisture: Dry Skin Color: Normal Course - Re-evaluation Re-evalutation: 11/29/19 12:51 Patient states that she still has a headache although improved. Abdomen soft tenderness when you palpate over the cellulitic indurated area of the left lower quadrant. Plain film x-rays shows moderate stool with no obstruction no acute process noted. - Vital Signs Vital signs: Temp Pulse Resp BP Pulse Ox 98.4 F 94 18 133/75 H 86 L 11/29/19 07:49 11/29/19 06:59 11/29/19 06:59 11/29/19 10:06 11/29/19 11:05 11/29/19 12:52 Vital signs are stable afebrile. - Laboratory Result Diagrams: 11/29/19 08:07 11/29/19 08:07 Laboratory results interpreted by me: 11/29/19 11/29/19 08:07 08:07 Hct 35.8 L Lymph % (Auto) 12.6 L Sodium 136.2 L Laboratories within normal limits patient white blood cell count is not elevated. Urine is clear. - Diagnostic Test Radiology reviewed: Image reviewed, Reports reviewed Radiology results interpreted by me: 11/29/19 12:53 Ultrasound abdomen left lower quadrant shows cellulitis without any abscess noted. Inflammatory changes noted. Discharge - Discharge Clinical Impression: Cellulitis of left abdominal wall Condition: Stable Disposition: HOME, SELF-CARE Instructions: Trimethoprim-Sulfa ([facility]) Additional Instructions: Cellulitis You have an infection of your skin and underlying soft tissues called cellulitis. This is due to bacteria, which can enter through any break in the skin, or even through an irritated hair follicle. Untreated, cellulitis will usually worsen. Antibiotics are required. Usually, warm packs or warm soaks, and elevation of the infected area are recommended. You should start getting better within 24 to 36 hours. Most infections respond quickly to the right medication. Follow-up care is important, however, to check for abscess (boil) formation, unsuspected foreign body, or resistant infection. If you develop fever, chills, or if the area of infection is becoming rapidly more swollen or painful, call the doctor at once. You are currently taking Bactrim which started 2 days ago for cellulitis of your left abdominal wall. We are adding clindamycin and doxycycline to your regimen to gain better antibiotic coverage to assist in improvement in your cellulitis. The doxycycline is added in the face of your question about tick bite whether or not this could have been a tick bite [place] Laboratories were sent to the lab to check for Lyme's disease and [place] spotted fever. Again as discussed if there is no improvement in your cellulitis and issues are start seen a decrease in the size of the cellulitis on your abdominal wall within the next 1 to 2 days. If that does not occur you need to be reevaluated. And if you start having symptoms of high fever chills return to the emergency room immediately. Prescriptions: Clindamycin HCl 300 mg PO TID #30 capsule Doxycycline Monohydrate 100 mg PO BID #20 capsule Referrals: ALVARO LOWERY FNP [Primary Care Provider] - Follow up as needed I personally performed the services described in the documentation, reviewed and edited the documentation which was dictated to the scribe in my presence, and it accurately records my words and actions.
[2019-11-29 13:20] VITALS: BP 102/87
[2019-12-01 01:36] LABS: ROCKY MTN SPOTTED FEV IGG EIA Negative (Negative)
[2019-12-01 07:04] LABS: ROCKY MTN SPOTTED FEVER IGM AB 0.65 index (0.00-0.89)
== END 2019-11-29 13:20 | disposition home or self-care (01) ==
LOC: ER 06:55
DX: L03.311 Cellulitis of abdominal wall (principal); I10 Essential (primary) hypertension
CPT/HCPCS: 99283; 96375; 96365; 96367; 36415; 87040; 83605; 83690; 85025; 80053; 81001; 81291; 86757 ×2; 74022; 76705; J2270; J2405; J7030; J3370; J0692

== ENCOUNTER → 2020-03-23 | Outpatient (CLI) | payer OTHER ==
--- NOTE | 2020-03-24 10:16 | WOMENS IMAGING REPORT ---
EXAM DESCRIPTION: 3D SCREENING MAMMO BILAT IMAGES COMPLETED DATE/TIME: 03/23/2020 3:54 pm REASON FOR STUDY: Z12.31 ENCOUNTER FOR SCREENING MAMMOGRAM FOR MALIGNANT NEOPLASM OF BREAST Z12.31 ENCNTR SCREEN MAMMOGRAM FOR MALIGNANT NEOPLASM OF DAVIN COMPARISON: 2015 through 2018. EXAM PARAMETERS: Views: Standard craniocaudal and mediolateral oblique views of each breast recorded using digital acquisition and breast tomosynthesis. Read with the assistance of CAD. .[facility] - [email or web address] Care Manager Version 9.2 LIMITATIONS: None. FINDINGS: No suspicious masses, suspicious calcifications or architectural distortion. No areas of c oncern. IMPRESSION: NEGATIVE MAMMOGRAM. BIRADS 1. BREAST DENSITY: b. There are scattered areas of fibroglandular density. BIRAD: ASSESSMENT: 1 NEGATIVE RECOMMENDATION: ROUTINE SCREENING COMMENT: The patient has been notified of the results by letter per MQSA requirements. Additional no tification policies are in place for contacting patient with suspicious or incomplete findings. Quality ID #[id number]: The [employer] recommends an annual screening mammogram for women aged 40 years or over. This facility utilizes a reminder system to ensure that all patients receive reminder letters, and/or direct phone calls for appointments. This includes reminders for routine scr eening mammograms, diagnostic mammograms, or other Breast Imaging Interventions when appropriate. Th is patient will be placed in the appropriate reminder system. TECHNICAL DOCUMENTATION: FINDING NUMBER: (1) ASSESSMENT: (1) JOB ID: [id number] 2010 [employer]- All Rights Reserved Reading location - IP/workstation name: [email or web address]
== END ==
LOC: WI 15:36
PROVIDERS: ATTEND Nurse Practitioner
DX: Z12.31 Encounter for screening mammogram for malignant neoplasm of breast (principal)
CPT/HCPCS: 77063; 77067